=== PATIENT | female | born 1930 | race Caucasian/White ===

== ENCOUNTER 2017-03-04 11:39 | Inpatient (IN) | payer OTHER ==
--- NOTE | 2017-03-04 11:56 | PDOC ---
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 No reported loss of consciousness. A family friend who visits her daily accompanies her to the ER, and states that her mental status is normal. There were has been no change in her alertness or her interactive ability since the fall. However, she complains of a visual impairment, able only to recognize shadows. This is new according to her friend. Review of systems: Patient has dementia but appears to be able to communicate somewhat about her medical condition. She denies headache, neck pain, chest pain , shortness of breath, abdominal pain, nausea, vomiting, diarrhea, or focal neurologic symptoms, unsteadiness of gait. However, she complains of decreased vision but is unable to identify which eye. Remainder systems reviewed and negative Past medical history: Alzheimer's dementia, thyroid disease, rheumatoid arthritis, status post aplastic anemia questionable etiology, GERD, high blood pressure, TIA, sick sinus syndrome with pacemaker. ALLERGIES: Penicillin sulfa Medications: Septra, Seroquel, Celexa, baby aspirin, Pepcid, Norvasc, metoprolol , methimazole, vitamins. Social history: Assisted living, nearest relative is in [place], family friend here visits her frequently. She is ambulatory and partially cares for herself, although dementia is significant Family history: Reviewed from her medical record, noncontributory Physical exam: Patient is confused but responsive, able to communicate adequately, no acute distress, cooperative Afebrile, vital signs normal Head: Small contusion and abrasion mid occiput. No laceration. No hematoma, depression, or crepitus Right pupil is pinpoint. Left pupil is dilated with evidence of prior iridectomy. Fundi are not visualized. ENT clear except for dry mucous membranes Neck without point tenderness or deformity of the vertebral bodies. Adequate range of motion without obvious pain. An enlarged thyroid is present without signs of inflammation. Lungs clear to P&A, no wheezes rales or rhonchi. No chest wall or rib cage tenderness or deformity CV S1 and S2 normal without murmur rub or gallop pulses full and symmetric no JVD or edema Abdomen nondistended, normal bowel sounds. Soft without mass tenderness or organomegaly. No CVAT Pelvis and spine without point tenderness or deformity. Extremities: No visible or palpable signs of trauma. Good range of motion without pain of the shoulders elbows hips knees and ankles. Neurological: C2 to 12 intact except for the pupils as noted above and loss of visual acuity. She claims to be able to see only outlines of shapes. Generalized weakness but no focal sensory or motor deficits are obvious. Babinski's down. DTRs 2+ symmetric Impression: Syncopal episode while in the bathroom at the [facility], probable vasovagal syncope, with subsequent head injury. Head injury appears to be minor, there is no neck pain or tenderness, and no sign of other injuries to the trunk or extremities. 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 In addition, there appears to be a loss of visual acuity, which may have contributed to her fall. This may be a TIA or acute CVA. Plan: CT to rule out occult bleed in the PHOTOGRAPHIC PROCESS SCREEN MAKER. EKG and enzymes to rule out occult coronary event. CBC and chemistries. Observation and further therapy depending on results 03/04/17 13:11 Past History - Past Medical History Allergies/Adverse Reactions: Allergies Allergy/AdvReac Type Severity Reaction Status Date / Time Penicillins Allergy Verified 03/04/17 12:16 Sulfa (Sulfonamide Allergy Verified 03/04/17 12:16 Antibiotics) STRAWBERRIES Allergy Uncoded 03/04/17 12:16 Home Medications: Ambulatory Orders Amlodipine Besylate [Norvasc -] 5 mg PO DAILY 03/04/17 Aspirin [ASA -] 81 mg PO ASDIR 03/04/17 Citalopram Hydrobromide [Citalopram HBr] 20 mg PO DAILY 03/04/17 Donepezil HCl [Aricept] 10 mg PO DAILY 03/04/17 Famotidine [Pepcid] 20 mg PO DAILY 03/04/17 Ferrous Sulfate [Feosol] 325 mg PO DAILY 03/04/17 Memantine HCl [Namenda -] 10 mg PO BID 03/04/17 Methimazole [Tapazole] 5 mg PO DAILY 03/04/17 Metoprolol Succinate [Toprol Xl -] 25 mg PO DAILY 03/04/17 Multivitamins [Tab-A-Vit -] 1 tab PO DAILY 03/04/17 Quetiapine Fumarate [Seroquel -] 50 mg PO BID 03/04/17 Turmeric Root Extract [Turmeric] 500 mg PO BID 03/04/17 Anemia: Yes (APLASTIC) Asthma: No Cancer: Yes (LEFT BREAST CA, SKIN CA) Cardiac Disorders: No CVA: Yes COPD: No CHF: No Dementia: Yes (MILD) Diabetes: No GI Disorders: Yes Disorders: No HTN: Yes Hypercholesterolemia: No Liver Disease: No Seizures: No Thyroid Disease: No - Surgical History Abdominal Surgery: Yes Appendectomy: No Cardiac Surgery: Yes (PACEMAKER) Cholecystectomy: Yes Lung Surgery: No Neurologic Surgery: No Orthopedic Surgery: Yes - Immunization History Td Vaccination: (unknown) - Suicide/Smoking/Psychosocial Hx Smoking Status: No Smoking History: Unknown if ever smoked Have you smoked in the past 12 months: No Number of Cigarettes Smoked Daily: 0 Hx Alcohol Use: No Drug/Substance Use Hx: No Substance Use Type: None Hx Substance Use Treatment: No *Physical Exam - Vital Signs Last Vital Signs Temp Pulse Resp BP Pulse Ox 99.3 F 89 18 140/71 96 03/04/17 11:44 03/04/17 11:44 03/04/17 11:44 03/04/17 11:44 03/04/17 11:44 ED Treatment Course - LABORATORY CBC & Chemistry Diagram: 03/04/17 11:58 03/04/17 11:58 Medical Decision Making - Medical Decision Making 03/04/17 12:55 EKG: Normal sinus rhythm 87/m. No evidence of pacemaker firing. Normal axes and intervals. No ST-T wave changes. Normal EKG Labs evaluated. CBC is normal with no evidence of leukopenia, anemia, or thrombocytopenia. Chemistries mild dehydration. Troponin negative. Head CT: No bleed. No other significant abnormalities. Been responsible for her fall, or may be the result. It is difficult to assess the extent of her vision loss due to her dementia. Her electrifier operator Dr. bueno was contacted by phone. He will see the patient later today. A neurologic consult was placed. The case was discussed with the hospitalist, who will admit the patient and arrange further evaluation and treatment. Patient is stable upon discharge to the [facility] floor for further treatment. 03/04/17 12:57 03/04/17 15:47 *DC/Admit/Observation/Transfer Diagnosis at time of Disposition: Decreased visual acuity Syncope Qualifiers: Syncope type: unspecified Qualified Code(s): R55 - Syncope and collapse - Discharge Dispostion Admit: Yes
[2017-03-04 12:04] LABS: EOSINOPHIL 0.5 % (0-4.5); MCH 31.9 pg (25.7-33.7); MCHC 32.9 g/dl (32.0-36.0); MEAN PLT VOLUME 6.9 fl (7.5-11.1); NEUTROPHILS 71.1 % (42.8-82.8); PLATELET COUNT 305 K/MM3 (134-434); RDW 15.4 % (11.6-15.6); WHITE BLOOD COUNT 5.8 K/mm3 (4.0-10.8)
[2017-03-04 12:21] LABS: INR 1.07 (0.82-1.09)
[2017-03-04 12:22] LABS: ALBUMIN 4.5 g/dl (3.5-5.0); ALK PHOS 108 U/L (32-92); ANION GAP 13 (8-16); BILIRUBIN,TOTAL 0.6 mg/dl (0.2-1.0); CALCIUM 9.4 mg/dl (8.4-10.2); CO2 22 mmol/L (22-28); CPK 71 IU/L (26-192); CREATININE 1.4 mg/dl (0.6-1.3); GLUCOSE,RANDOM 118 mg/dl (74-106); SGOT/AST 23 U/L (10-42); SGPT/ALT 17 U/L (10-40); TOT PROT 7.8 g/dl (6.4-8.3)
[2017-03-04] MEDS ORDERED: SODIUM CHLORIDE 250 ML IV STA (12:41)
[2017-03-04 12:49] LABS: TROPONIN I (DFP) < 0.03 ng/ml (0.03-0.50)
[2017-03-04] MEDS ORDERED: LORazepam 2 MG/ML SDV VIAL ONE ×2 (13:50→20:21)
--- NOTE | 2017-03-04 14:25 | HP ---
CHIEF COMPLAINT: syncope PCP: [facility] HISTORY OF PRESENT ILLNESS: This is an 86 year old female with a significant past medical history of SSS s/ p PPM, TIA, HTN who presented to the ED from her assisted living facility. As per her friend, she was found on the floor in the bathroom after pulling the emergency cord in her bathroom. Pt is unable to provide any history of her fall or past medical history. History obtained for medical record and friend. Pt reported to the ED staff that she was unable to see, that all she was seeing was shadows. Pt sustained a contusion and abrasion to the back of her head but no other obvious injury located and she denies specific complaints. Upon exam pt does not report any visual changes and seems confused when I asked her about her vision. ER course was notable for: (1) Ct head without acute infarction or bleed (2) CT c spine without acute fracture or subluxation Recent Travel: none PAST MEDICAL HISTORY: alzheimer's dementia thyroid disease RA aplastic anemia GERD HTN TIA sick sinus syndrome PAST SURGICAL HISTORY: PPM Right cataract Social History: Smoking: none Alcohol: none Drugs: none Family History: unobtainable Allergies Penicillins Allergy (Verified 03/04/17 12:16) Sulfa (Sulfonamide Antibiotics) Allergy (Verified 03/04/17 12:16) STRAWBERRIES Allergy (Uncoded 03/04/17 12:16) HOME MEDICATIONS: 3 Medication Instructions Recorded Amlodipine Besylate [Norvasc -] 5 mg PO DAILY 03/04/17 Aspirin [ASA -] 81 mg PO ASDIR 03/04/17 Citalopram Hydrobromide 20 mg PO DAILY 03/04/17 [Citalopram HBr] Donepezil HCl [Aricept] 10 mg PO DAILY 03/04/17 Famotidine [Pepcid] 20 mg PO DAILY 03/04/17 Ferrous Sulfate [Feosol] 325 mg PO DAILY 03/04/17 Memantine HCl [Namenda -] 10 mg PO BID 03/04/17 Methimazole [Tapazole] 5 mg PO DAILY 03/04/17 Metoprolol Succinate [Toprol Xl -] 25 mg PO DAILY 03/04/17 Multivitamins [Tab-A-Vit -] 1 tab PO DAILY 03/04/17 Quetiapine Fumarate [Seroquel -] 50 mg PO BID 03/04/17 Turmeric Root Extract [Turmeric] 500 mg PO BID 03/04/17 REVIEW OF SYSTEMS CONSTITUTIONAL: Absent: fever, chills, diaphoresis, generalized weakness, malaise, loss of appetite, weight change HEENT: Present: difficulty seeing Absent: rhinorrhea, nasal congestion, throat pain, throat swelling, difficulty swallowing, mouth swelling, ear pain, eye pain, visual changes CARDIOVASCULAR: Absent: chest pain, syncope, palpitations, irregular heart rate, lightheadedness , peripheral edema RESPIRATORY: Absent: cough, shortness of breath, dyspnea with exertion, orthopnea, wheezing, stridor, hemoptysis GASTROINTESTINAL: Absent: abdominal pain, abdominal distension, nausea, vomiting, diarrhea, constipation, melena, hematochezia GENITOURINARY: Absent: dysuria, frequency, urgency, hesitancy, hematuria, flank pain, genital pain MUSCULOSKELETAL: Absent: myalgia, arthralgia, joint swelling, back pain, neck pain SKIN: Absent: rash, itching, pallor HEMATOLOGIC/IMMUNOLOGIC: Absent: easy bleeding, easy bruising, lymphadenopathy, frequent infections ENDOCRINE: Absent: unexplained weight gain, unexplained weight loss, heat intolerance, cold intolerance NEUROLOGIC: Present: fall with head injury Absent: headache, focal weakness or paresthesias, dizziness, unsteady gait, seizure, mental status changes, bladder or bowel incontinence PSYCHIATRIC: Absent: anxiety, depression, suicidal or homicidal ideation, hallucinations. PHYSICAL EXAMINATION Vital Signs - 24 hr 3 03/04/17 03/04/17 11:44 14:16 Temperature 99.3 F Pulse Rate 89 Pulse Rate [ 88 Apical] Respiratory 18 16 Rate Blood Pressure 140/71 Blood Pressure 122/72 [Right Arm] O2 Sat by Pulse 96 Oximetry (%) GENERAL: Sleeping, arousable, in no acute distress. Pt appears disheveled with unkempt hair HEAD: Normal with no signs of trauma. EYES: Left pupil irreg, post surgical, right pupil 2mm, minimal reaction, extraocular movements intact, sclera anicteric, conjunctiva clear. No lid lag. Able to follow finger and identify how many fingers being held up. EARS, NOSE, THROAT: Ears normal, nares patent, oropharynx clear without exudates. Moist mucous membranes. NECK: Normal range of motion, supple without lymphadenopathy, JVD, or masses. LUNGS: Breath sounds equal, clear to auscultation bilaterally. No wheezes, and no crackles. No accessory muscle use. HEART: Regular rate and rhythm, normal S1 and S2 without murmur, rub or gallop. ABDOMEN: Soft, nontender, not distended, normoactive bowel sounds, no guarding, no rebound, no masses. No hepatomegaly or splenomegaly. MUSCULOSKELETAL: Normal range of motion at all joints. No bony deformities or tenderness. No CVA tenderness. UPPER EXTREMITIES: 2+ pulses, warm, well-perfused. No cyanosis. No clubbing. No peripheral edema. LOWER EXTREMITIES: 2+ pulses, warm, well-perfused. No calf tenderness. No peripheral edema. NEUROLOGICAL: Cranial nerves II-XII intact. Normal speech. Normal gait. PSYCHIATRIC: Cooperative. Good eye contact. Appropriate mood and affect. SKIN: Warm, dry, normal turgor, no rashes or lesions noted, normal capillary refill. Laboratory Results - last 24 hr 3 03/04/17 03/04/17 03/04/17 11:58 11:58 11:58 WBC 5.8 RBC 4.07 Hgb 13.0 D Hct 39.4 D MCV 97.0 H D MCH 31.9 D MCHC 32.9 RDW 15.4 D Plt Count 305 MPV 6.9 L Neutrophils % 71.1 Lymphocytes % 10.4 D Monocytes % 17.0 H Eosinophils % 0.5 Basophils % 1.0 D PT with INR 12.0 INR 1.07 Sodium 137 Potassium 4.1 Chloride 102 Carbon Dioxide 22 D Anion Gap 13 BUN 39 H D Creatinine 1.4 H D Creat Clearance w eGFR 35.65 Random Glucose 118 H Calcium 9.4 Total Bilirubin 0.6 D AST 23 ALT 17 Alkaline Phosphatase 108 H D Creatine Kinase 71 Troponin I < 0.03 L Total Protein 7.8 Albumin 4.5 Radiology Reports ECG NSR QTC 450 ASSESSMENT/PLAN: 86yF with PMH Alzheimer's dementia, RA, aplastic anemia, GERD, HTN, TIA, SSS s/ p PPM presented to the ED s/p found on floor. Fall, ? syncope, ? new visual field changes - CT head with no acute changes - Ophthalmology consult pending - discussed case with neurology, will hold off on MRI at this time. - admit for observation, tele, trend cardiac enzymes to r/o cardiac event causing fall - start ASA ARIANE - likely due to hypovolemia - gentle hydration, NS @ 75cc/hr HTN - cont home toprol and norvasc Thyroid disease, goiter - check TSH - cont tapazole Alzheimer's dementia with behavioral disturbance - cont aricept, namenda and seroquel - pt was extremely agitated in ED, given 1mg ativan with good relief. DVT PPX - defer tx as expected LOS <48h FEN - cont NS 75cc/hr for now, reassess in am - BMP in am - regular diet as tolerated Dispo: Pt currently requires inpatient observation for management of her acute condition. Visit type - Emergency Visit Emergency Visit: Yes ED Registration Date: 03/04/17 Care time: The patient presented to the Emergency Department on the above date and was hospitalized for further evaluation of their emergent condition. - New Patient This patient is new to me today: Yes Date on this admission: 03/04/17 - Critical Care Critical Care patient: No
[2017-03-04] MEDS ORDERED: ASPIRIN 325 MG TABLET PO ONE (14:40)
[2017-03-04] MEDS ORDERED: SODIUM CHLORIDE 1,000 ML IV SCH (14:45)
[2017-03-04] MEDS ORDERED: ASPIRIN 81 MG CHEWABLE TABLETS PO SCH (15:00)
[2017-03-04] MEDS ORDERED: ASPIRIN 325 MG TABLET ONE (15:13)
--- NOTE | 2017-03-04 18:19 | CONSULT ---
Consult Consult Specialty:: Ophthalmology - History of Present Illness Chief Complaint: Sudden change in her vision since she fell this morning. - Past Medical History Cardio/Vascular: Yes: HTN, Other (SSS and syncope) Pulmonary: Yes: Bronchitis Psych: Yes: Anxiety, Depression Musculoskeletal: Yes: Chronic low back pain, Osteoarthritis - Past Surgical History Past Surgical History: Yes: None, Arthrosocopy, Breast Biopsy, Craniotomy, Hysterectomy - Alcohol/Substance Use Hx Alcohol Use: No History of Substance Use: reports: None - Smoking History Smoking history: Unknown if ever smoked Have you smoked in the past 12 months: No Aproximately how many cigarettes per day: 0 - Social History ADL: Support Services History of Recent Travel: No Home Medications - Allergies Allergies/Adverse Reactions: Allergies Allergy/AdvReac Type Severity Reaction Status Date / Time Penicillins Allergy Verified 03/04/17 12:16 Sulfa (Sulfonamide Allergy Verified 03/04/17 12:16 Antibiotics) STRAWBERRIES Allergy Uncoded 03/04/17 12:16 - Home Medications Home Medications: Ambulatory Orders Amlodipine Besylate [Norvasc -] 5 mg PO DAILY 03/04/17 Aspirin [ASA -] 81 mg PO ASDIR 03/04/17 Citalopram Hydrobromide [Citalopram HBr] 20 mg PO DAILY 03/04/17 Donepezil HCl [Aricept] 10 mg PO DAILY 03/04/17 Famotidine [Pepcid] 20 mg PO DAILY 03/04/17 Ferrous Sulfate [Feosol] 325 mg PO DAILY 03/04/17 Memantine HCl [Namenda -] 10 mg PO BID 03/04/17 Methimazole [Tapazole] 5 mg PO DAILY 03/04/17 Metoprolol Succinate [Toprol Xl -] 25 mg PO DAILY 03/04/17 Multivitamins [Tab-A-Vit -] 1 tab PO DAILY 03/04/17 Quetiapine Fumarate [Seroquel -] 50 mg PO BID 03/04/17 Turmeric Root Extract [Turmeric] 500 mg PO BID 03/04/17 Physical Exam Vital Signs: Vital Signs Temperature 98.4 F 03/04/17 17:28 Pulse Rate 86 03/04/17 17:28 Respiratory Rate 20 03/04/17 17:28 Blood Pressure 130/66 03/04/17 17:28 O2 Sat by Pulse Oximetry (%) 93 L 03/04/17 17:28 Eyes: Yes: Other (Va CF OD and Hand Motion OS. Pupils 2mm with little reaction OD and surgical OS - minimally reactive. Full EOM Anterior exam significant for mild injection and mucous discharge OD. Pseudophakic oD and aphakic OS. Intraocular pressure 14mmHg OU. The patient was dilated with 1% Tropicamide OU. Posterior exam was without acute pathology. No papilledema.) Assessment/Plan A/p: Acute decrease in vision OU without ocular changes. R/o Occipital lobe infarct (cortical blindness).
--- NOTE | 2017-03-04 18:25 | CON.NEURO ---
Consult - Past Medical History Cardio/Vascular: Yes: HTN, Other (SSS and syncope) Pulmonary: Yes: Bronchitis ...: No Psych: Yes: Anxiety, Depression Musculoskeletal: Yes: Chronic low back pain, Osteoarthritis - Past Surgical History Past Surgical History: Yes: None, Arthrosocopy, Breast Biopsy, Craniotomy, Hysterectomy - Alcohol/Substance Use Hx Alcohol Use: No History of Substance Use: reports: None - Smoking History Smoking history: Unknown if ever smoked Have you smoked in the past 12 months: No Aproximately how many cigarettes per day: 0 - Social History ADL: Support Services History of Recent Travel: No Home Medications - Allergies Allergies/Adverse Reactions: Allergies Allergy/AdvReac Type Severity Reaction Status Date / Time Penicillins Allergy Verified 03/04/17 12:16 Sulfa (Sulfonamide Allergy Verified 03/04/17 12:16 Antibiotics) STRAWBERRIES Allergy Uncoded 03/04/17 12:16 - Home Medications Home Medications: Ambulatory Orders Amlodipine Besylate [Norvasc -] 5 mg PO DAILY 03/04/17 Aspirin [ASA -] 81 mg PO ASDIR 03/04/17 Citalopram Hydrobromide [Citalopram HBr] 20 mg PO DAILY 03/04/17 Donepezil HCl [Aricept] 10 mg PO DAILY 03/04/17 Famotidine [Pepcid] 20 mg PO DAILY 03/04/17 Ferrous Sulfate [Feosol] 325 mg PO DAILY 03/04/17 Memantine HCl [Namenda -] 10 mg PO BID 03/04/17 Methimazole [Tapazole] 5 mg PO DAILY 03/04/17 Metoprolol Succinate [Toprol Xl -] 25 mg PO DAILY 03/04/17 Multivitamins [Tab-A-Vit -] 1 tab PO DAILY 03/04/17 Quetiapine Fumarate [Seroquel -] 50 mg PO BID 03/04/17 Turmeric Root Extract [Turmeric] 500 mg PO BID 03/04/17 Physical Exam-Neuro Vital Signs: Vital Signs Temperature 98.4 F 03/04/17 17:28 Pulse Rate 86 03/04/17 17:28 Respiratory Rate 20 03/04/17 17:28 Blood Pressure 130/66 03/04/17 17:28 O2 Sat by Pulse Oximetry (%) 93 L 03/04/17 17:28 Labs: INR, PTT INR 1.07 (0.82-1.09) 03/04/17 11:58 Assessment/Plan cc found on floor and difficulty seeing HPI 86 year oldf emale hsitory of sick sinus syndrome, tia, hypertension. She lives in assisted living facislity and had ct scan done and it was normal. Patient have difficulty seeing and she had ct scan done it was normal pAST Medical History of dementia, thyroid disease, aplstic anemia, rheumatoid arthritis, hypertension, gerd, tia , had cataract surgery done before Social History: Smoking: none Alcohol: none Drugs: none Allergies Penicillins Allergy (Verified 03/04/17 12:16) Sulfa (Sulfonamide Antibiotics) Allergy (Verified 03/04/17 12:16) STRAWBERRIES Allergy (Uncoded 03/04/17 12:16) HOME MEDICATIONS: 3 Medication Instructions Recorded Amlodipine Besylate [Norvasc -] 5 mg PO DAILY 03/04/17 Aspirin [ASA -] 81 mg PO ASDIR 03/04/17 Citalopram Hydrobromide 20 mg PO DAILY 03/04/17 [Citalopram HBr] Donepezil HCl [Aricept] 10 mg PO DAILY 03/04/17 Famotidine [Pepcid] 20 mg PO DAILY 03/04/17 Ferrous Sulfate [Feosol] 325 mg PO DAILY 03/04/17 Memantine HCl [Namenda -] 10 mg PO BID 03/04/17 Methimazole [Tapazole] 5 mg PO DAILY 03/04/17 Metoprolol Succinate [Toprol Xl -] 25 mg PO DAILY 03/04/17 Multivitamins [Tab-A-Vit -] 1 tab PO DAILY 03/04/17 Quetiapine Fumarate [Seroquel -] 50 mg PO BID 03/04/17 Turmeric Root Extract [Turmeric] 500 mg PO BID 03/04/17 REVIEW OF SYSTEMS reviewed in chart Neurological Examination Alert Oriented x 0 speech is normal and able to follow command no face asymmetry, there is mild conjugate [id number] to left side left eye visual acuity is only for hand movement right eye visual acuity, there is conjugate deviation to left side difficult to move both eye to right moving all extremity sensation is normal ct head unremarkable Assessment-- most likely she have occiptal stroke Plan-- suggest to go mri of brain and carotid ultrasound - would add aspirin and statin - dvt prophylaxis, speech and pt -woudl follow up with primary Thanks for consult Fabian Leigh MD
[2017-03-04 18:49] LABS: CPK 129 IU/L (26-192)
[2017-03-04 19:15] LABS: TROPONIN I (DFP) < 0.03 ng/ml (0.03-0.50)
[2017-03-04] MEDS ORDERED: QUEtiapine FUMARATE 25 MG TABLET (FP) ONE (21:28)
[2017-03-04] MEDS: MEMANTINE HCL 10 MG TABLET (FP) PO SCH (21:43)
[2017-03-04] MEDS ORDERED: ATORVASTATIN CA 20 MG TABLET (FP) PO SCH (22:00)
[2017-03-04] MEDS ORDERED: QUEtiapine FUMARATE 50 MG TABLET PO SCH (22:00)
[2017-03-05 02:34] LABS: TROPONIN I 0.04 ng/ml (0.00-0.05)
[2017-03-05 08:12] LABS: BASOPHIL 0.1 % (0-2.0); EOSINOPHIL 0.9 % (0-4.5); MCH 32.3 pg (25.7-33.7); MCHC 33.3 g/dl (32.0-36.0); MEAN CELL VOLUME 96.8 fl (80-96); MEAN PLT VOLUME 7.3 fl (7.5-11.1); NEUTROPHILS 75.3 % (42.8-82.8); PLATELET COUNT 210 K/MM3 (134-434); RDW 14.7 % (11.6-15.6); WHITE BLOOD COUNT 6.2 K/mm3 (4.0-10.8)
[2017-03-05 08:43] LABS: ALBUMIN 3.8 g/dl (3.5-5.0); ALK PHOS 87 U/L (32-92); ANION GAP 11 (8-16); BILIRUBIN,TOTAL 1.2 mg/dl (0.2-1.0); CALCIUM 8.8 mg/dl (8.4-10.2); CO2 20 mmol/L (22-28); CREATININE 0.9 mg/dl (0.6-1.3); GLUCOSE,RANDOM 114 mg/dl (74-106); MAGNESIUM 1.6 mg/dL (1.8-2.4); SGOT/AST 36 U/L (10-42); SGPT/ALT 18 U/L (10-40); TOT PROT 6.2 g/dl (6.4-8.3)
--- NOTE | 2017-03-05 09:24 | PN ---
Physical Exam: SUBJECTIVE: Patient seen and examined at bedside. Student nurses bathing patient , report she is crusted with dirt. OBJECTIVE: Vital Signs Period Temp Pulse Resp BP Sys/Fowler Pulse Ox Last 24 Hr 98.4 F-98.9 F 83-95 16-20 119-146/61-89 93-95 GENERAL: The patient is awake, A&O x 0. Follows commands after several attempts (squeeze hands), repeats I want to go home. Speech is clear. Moving extremites. HEAD: Normal with no signs of trauma. EYES: left pupil irregular; right pupil 1mm and deviated to left; left eye infected, lids inflamed, clear discharge LUNGS: CTA,no wheezes, no crackles, no accessory muscle use. HEART: Regular rate and rhythm, S1, S2 without murmur, rub or gallop. ABDOMEN: Soft, nontender, nondistended, normoactive bowel sounds, no guarding, no rebound EXTREMITIES: 2+ pulses, warm, well-perfused, no edema. Laboratory Results - last 24 hr 03/04/17 03/04/17 03/05/17 15:00 18:10 01:20 WBC RBC Hgb Hct MCV MCH MCHC RDW Plt Count MPV Neutrophils % Lymphocytes % Monocytes % Eosinophils % Basophils % Sodium Potassium Chloride Carbon Dioxide Anion Gap BUN Creatinine Creat Clearance w eGFR Random Glucose Calcium Magnesium Total Bilirubin AST ALT Alkaline Phosphatase Creatine Kinase 129 389 H Creatine Kinase Index 1.7 CK-MB (CK-2) 6.643 H Troponin I < 0.03 L 0.04 Total Protein Albumin TSH < 0.01 L 03/05/17 03/05/17 07:15 07:15 WBC 6.2 RBC 3.50 L Hgb 11.3 D Hct 33.9 MCV 96.8 H MCH 32.3 MCHC 33.3 RDW 14.7 Plt Count 210 D MPV 7.3 L Neutrophils % 75.3 Lymphocytes % 10.5 Monocytes % 13.2 H Eosinophils % 0.9 Basophils % 0.1 Sodium 141 Potassium 3.4 L Chloride 110 H Carbon Dioxide 20 L Anion Gap 11 BUN 24 H D Creatinine 0.9 D Creat Clearance w eGFR 59.37 Random Glucose 114 H Calcium 8.8 Magnesium 1.6 L D Total Bilirubin 1.2 H D AST 36 D ALT 18 Alkaline Phosphatase 87 Creatine Kinase Creatine Kinase Index CK-MB (CK-2) Troponin I Total Protein 6.2 L D Albumin 3.8 TSH Active Medications Generic Name Dose Route Start Last Admin Trade Name Maynor PRN Reason Stop Dose Admin Amlodipine Besylate 5 mg 03/05/17 10:00 Norvasc - PO DAILY [facility] Aspirin 81 mg 03/05/17 10:00 Asa - PO DAILY DIANNE Atorvastatin Calcium 20 mg 03/04/17 22:00 03/04/17 21:43 Lipitor - PO 20 mg HS DIANNE Administration Citalopram Hydrobromide 20 mg 03/05/17 10:00 Celexa - PO DAILY DIANNE Donepezil HCl 10 mg 03/05/17 10:00 Aricept - PO DAILY DIANNE Famotidine 20 mg 03/05/17 10:00 Pepcid - PO DAILY [facility] Ferrous Sulfate 325 mg 03/05/17 10:00 Feosol - PO DAILY [facility] Sodium Chloride 1,000 mls @ 75 mls/hr 03/04/17 14:45 03/04/17 15:20 Normal Saline - IV 75 mls/hr ASDIR DIANNE Administration Magnesium Oxide 800 mg 03/05/17 09:19 Mag-Ox - PO 03/05/17 09:20 ONCE ONE Memantine 10 mg 03/04/17 22:00 03/04/17 21:43 Namenda - PO 10 mg BID DIANNE Administration Methimazole 5 mg 03/05/17 10:00 Tapazole - PO DAILY [facility] Metoprolol Succinate 25 mg 03/05/17 10:00 Toprol Xl - PO DAILY [facility] Multivitamins/Minerals/Vitamin C 1 tab 03/05/17 10:00 Tab-A-Vit - PO DAILY [facility] Potassium Chloride 40 meq 03/05/17 09:30 K-Dur - PO 03/05/17 15:31 Q6H DIANNE Quetiapine Fumarate 50 mg 03/05/17 10:00 Seroquel - PO BID [facility] ASSESSMENT/PLAN: 86 year-old female with a PMH significant for HTN, dementia, h/o TIA, sick sinus syndrome s/p PPM, and thyroid disease. Found on floor. Possible syncope r/o CVA --seen and evaluated by personal opthalmologist, found to have acute decrease in OU vision without ocular changes (irregular left pupil, and miotic, deviated right pupil are baseline) --possible occipital lobe infarct --CT head unremarkable; MRI brain pending, reaching out to nephew to answer MRI questionnaire --continue ASA, high dose statin r/o ACS SVT --troponins negative x 3 --episode of tachyarrthymia overnight to 140s --QTc 450 on ECG, on seroquel is concerning; repeat ECG --continue Toprol XL --cardiology consult requested ARIANE, resolved --Cr 1.4 on admission, today 0.9 --stop IV fluids HTN --BP well-controlled --continue Toprol XL, amlodipine Thyroid disease, goiter - TSH wnl - continue methimazole Alzheimer's dementia with behavioral disturbance --cont aricept, namenda --hold seroquel for now due to concern for prolonged QTc, tachyarrythmia --swallowing is impaired Hypokalemia --repleted --keep K>4.0 Hypomagnesemia --repleted --keep Mg>2.0 Physical therapy eval FEN Fluids: PO intake adequate Electrolytes: replete as indicated Nutrition: dysphagia puree, nectar thick DVT prophylaxis: subq heparin, oob, ambulation Dispo: conversation with Reji Mosquera, brother and HCP (cell [phone]); he is aware of sister's decline, of her being unkempt and refusing to bathe, of her progressive dementia with episodes of agitation; discussed possible need for higher level of care than [facility]; brother confirmed patient is FULL CODE. Visit type - Emergency Visit Emergency Visit: Yes ED Registration Date: 03/04/17 Care time: The patient presented to the Emergency Department on the above date and was hospitalized for further evaluation of their emergent condition. - New Patient This patient is new to me today: Yes Date on this admission: 03/05/17 - Critical Care Critical Care patient: No
[2017-03-05] MEDS ORDERED: QUEtiapine FUMARATE 25 MG TABLET (FP) PO SCH (10:00)
[2017-03-05] MEDS ORDERED: MULTIVITAMINS (DAILY MVI) TABLET (FP) PO SCH (10:00)
[2017-03-05] MEDS ORDERED: FERROUS SO4 325 MG TABLET (FP) PO SCH (10:00)
[2017-03-05] MEDS ORDERED: MAGNESIUM OXIDE 400 MG TABLET (FP) PO ONE (10:20)
[2017-03-05] MEDS: POTASSIUM CHLORIDE TABS 20 MEQ TABLET.ER (FP) PO SCH ×2 (10:57→15:39)
[2017-03-05] MEDS: ASPIRIN 81 MG CHEWABLE TABLETS PO SCH (10:57)
[2017-03-05] MEDS: amLODIPine BESYLATE 5 MG TABLET (FP) PO SCH (10:57)
[2017-03-05] MEDS: METOPROLOL SUCCINATE 25 MG TAB.SR.24H (FP) PO SCH (10:57)
[2017-03-05] MEDS: CITALOPRAM HYDROBROMIDE 20 MG TABLET (FP) PO SCH (10:57)
[2017-03-05] MEDS: DONEPEZIL HCL 10 MG TABLET (FP) PO SCH (10:57)
[2017-03-05] MEDS: FAMOTIDINE 20 MG TABLET PO SCH (10:57)
[2017-03-05] MEDS: METHIMAZOLE 5 MG TABLET (FP) PO SCH (10:57)
[2017-03-05] MEDS: MEMANTINE HCL 10 MG TABLET (FP) PO SCH ×3 (10:57→23:52)
[2017-03-05] MEDS: TOBRA 0.3%/DEXAMETH 0.1% OPHTHALMIC SUSP 2.5 ML BTL OD SCH ×3 (11:02→21:19)
--- NOTE | 2017-03-05 11:13 | CONSULT ---
Admitting History and Physical - Primary Care Physician PCP: Anita Gomez - Admission History of Present Illness: Per EMR: HISTORY OF PRESENT ILLNESS: This is an 86 year old female with a significant past medical history of SSS s/ p PPM, TIA, HTN who presented to the ED from her assisted living facility. As per her friend, she was found on the floor in the bathroom after pulling the emergency cord in her bathroom. Pt is unable to provide any history of her fall or past medical history. History obtained for medical record and friend. Pt reported to the ED staff that she was unable to see, that all she was seeing was shadows. Pt sustained a contusion and abrasion to the back of her head but no other obvious injury located and she denies specific complaints. Upon exam pt does not report any visual changes and seems confused when I asked her about her vision. ER course was notable for: (1) Ct head without acute infarction or bleed (2) CT c spine without acute fracture or subluxation Per Opthamology "Acute decrease in vision OU without ocular changes. R/o Occipital lobe infarct (cortical blindness)." Pt given Ativan last night for acute agitation. Pt arousal and responsive for me this am. She is able to count no. of finger I hold up today 90% of the time but could not see/name a fork. History Source: Medical Record Limitations to Obtaining History: Clinical Condition, Dementia, Poor Historian - Past Medical History Cardiovascular: Yes: HTN, Other (SSS and syncope) Pulmonary: Yes: Bronchitis ...: No Heme/Onc: Yes: Other (Aplastic Anemia) Psych: Yes: Anxiety, Depression Musculoskeletal: Yes: Chronic low back pain, Osteoarthritis - Past Surgical History Past Surgical History: Yes: None, Arthrosocopy, Breast Biopsy, Craniotomy, Hysterectomy - Smoking History Smoking history: Unknown if ever smoked Have you smoked in the past 12 months: No Aproximately how many cigarettes per day: 0 - Alcohol/Substance Use Hx Alcohol Use: No History of Substance Use: reports: None - Social History ADL: Support Services History of Recent Travel: No History - Admission Reason For Visit: DECREASED VISUAL ACUITY/SYNCOPE - Diagnostics CT Scan: Report Reviewed MRI: Pending - General Mental Status: Awake and Alert (not oriented x 3), Able to Follow Commands, Forgetful, Confused Attention: Distractible, Mild Impairment Ability to Follow Directions: Fair Head/Neck Control: Fair - Hearing Hearing: Impaired Speech Evaluation - Communication Primary Language: ARMENIAN Communication: Yes: Simple Responses (mild articulatory imprecision likely sec to Ativan.) Oral Expression Ability: Yes: Mild Impairment, Moderate Impairment - Speech Production Able to Make Needs Known: Yes: Mildly Impaired Intelligibility: Yes: Mildly Impaired - Speech Characteristics Voice Loudness: Normal Voice Pitch: Yes: Normal Voice Phonatory-based Quality: Yes: Normal Speech Pattern: Impaired Speech Clarity: < 75% Nasal Resonance: Normal Articulation: Yes: Imprecise - Language/Auditory Comprehension Follows: Yes: 1 Stage Simple Commands - Language/Verbal Expression Aphasia: Yes: Anomia, Paraphrasic Errors (baseline vs acute) Able to Respond to Simple Queries: Yes: Moderately Impaired Able to Communicate Wants and Needs: Yes: Mildly Impaired Aware of Errors: No Attempts to Correct Errors: No - Swallow Evaluation/Bedside Assessment Current Nutritional Intake: Regular, Thin Liquids Oral Secretions: Yes: WFL (secretions on velum) Dentition: Yes: Adequate Facial Symmetry at Rest: Symmetrical Facial Symmetry on Retraction: Symmetrical Laryngeal Elevation: Impaired Laryngeal Movement: Reduced Excursion (quite restricted and labored laryngeal elevation), Labored,delay initiation, Reduced Velocity Rate of Intake: Slow/Holding Bolus Size: Small (accepts tip of spoon) Labial Seal: WFL Oral Prep Time: Increased A-P Transit: Impaired Timing of Swallow: Delayed (needs reminders to swallow.) Coughing/Throat Clear: Yes (thin water trial) Recommendations - Speech Evaluation, Impression/Plan Impression: Quite restricted and labored laryngeal elevation. Doubt this is acute. Aspiration suspected on thin liquid and stasis with puree/solids. Verbal , confused,disoriented x 3,anomia and word errors. Able to see my fingers and count them. - Disposition Discharge to: [facility] Facility - Dysphagia Impressions/Plan Swallowing Skills: Impaired Dysphagia Impressions: Moderate Impairment, Ongoing Evaluation, Suspect Aspiration *Silent aspiration: cannot be R/O at bedside Dysphagia Treatment Plan: Small Bites, Chin Tuck/Down, Clear Pocket Food, Trial Feedings, Facilitative Feeding, Safe Rate, 1/2 tsp. at a time, Elevate HOB during feed Recommendations: Modified Barium Swallow (if signs of aspiration), Other ( Monitor neurologic, pulmonary and nutritional status. NPO if cough,congestion, throat clearing, elevating WBC, fevers.) - Recommendations Diet Consistency: Dysphagia Pureed Medication Administration: Crushed with applesauce Liquids: [place] Thick Supplement: Other (Ensure compact)
[2017-03-05] MEDS ORDERED: LORazepam 2 MG/ML SDV VIAL IVPUSH ONE (12:00)
[2017-03-05] MEDS ORDERED: LORazepam 0.5 MG TABLET PO ONE (13:00)
[2017-03-05 14:10] LABS: PH,URINE 5.5 (4.5-8); URINE APPEARANCE Clear; URINE BILIRUBIN Negative (NEGATIVE); URINE GLUCOSE (UA) Negative (NEGATIVE); URINE KETONE 1+ (NEGATIVE); URINE LEUK ESTERASE Negative (NEGATIVE); URINE NITRITE Negative (NEGATIVE); URINE UROBILINOGEN 0.2 (0.2-1.0)
[2017-03-05 14:11] LABS: URINE BLOOD 2+ (NEGATIVE); URINE COLOR YELLOW; URINE PROTEIN 1+ (NEGATIVE)
[2017-03-05] MEDS: HEPARIN NA (PORCINE) 5,000 UNITS/ML 1ML VIAL SQ SCH ×2 (14:14→21:16)
[2017-03-05] MEDS ORDERED: PT OWN MED DRAWER 7, Y5N ONE ×2 (14:14→21:14)
[2017-03-05 14:20] LABS: URINE BACTERIA MODERATE /hpf (NEGATIVE); URINE RBC 15-20 /hpf (0-3); URINE WBC 0-3 /hpf (3-5)
--- NOTE | 2017-03-05 16:55 | CON.CARD ---
Cardiology Consult (text) - Consultation Consultation Note: CC: possible [facility]va 86 yo [facility] resident with h/o SSS s/p PPM, TIA, HTN, dementia, aplastic anemia, ra, gerd who presents s/p fall with new vision changes and concern for occiptal stroke . As per her friend, she was found on the floor in the bathroom after pulling the emergency cord in her bathroom. + trauma to head with small amount of bleeding from the occipital area.. Pt reported to the ED staff that all she was seeing was shadows (new). Per neuro, plan for mri and carotid u/s. Hospital course notable for new onset diarrhea and possible tachyarrhythmia to 140's overnight. Per speech and swallow, suspected aspiration --> plan for barium swallow eval. Per usp, ambulates with cane or walker. According to nursing here, patient to agitated/confused to stand. Seroquel stopped due to concern for qt prolongation History limited due to confusion and difficulty hearing. Accuracy of ROS is unclear. She denies cp, sob, orthopnea, pnd, le edema, palps, dizziness. She denies headache, neck pain, abdominal pain, nausea, vomiting, f/c/s. Past medical history/pshx: Alzheimer's dementia, thyroid disease, rheumatoid arthritis, status post aplastic anemia questionable etiology, GERD, high blood pressure, TIA, sick sinus syndrome with pacemaker. Right cataract surgery. Arthrosocopy, Breast Biopsy, Craniotomy, Hysterectomy Social history: Per report, Assisted living, nearest relative is in [place], family friend here visits her frequently. She is ambulatory and partially cares for herself, although dementia is significant. never smoker Family history: denies cardiac history but patient has poor memory ros: per hpi Ambulatory Orders Amlodipine Besylate [Norvasc -] 5 mg PO DAILY 03/04/17 Aspirin [ASA -] 81 mg PO ASDIR 03/04/17 Citalopram Hydrobromide [Citalopram HBr] 20 mg PO DAILY 03/04/17 Donepezil HCl [Aricept] 10 mg PO DAILY 03/04/17 Famotidine [Pepcid] 20 mg PO DAILY 03/04/17 Ferrous Sulfate [Feosol] 325 mg PO DAILY 03/04/17 Memantine HCl [Namenda -] 10 mg PO BID 03/04/17 Methimazole [Tapazole] 5 mg PO DAILY 03/04/17 Metoprolol Succinate [Toprol Xl -] 25 mg PO DAILY 03/04/17 Multivitamins [Tab-A-Vit -] 1 tab PO DAILY 03/04/17 Quetiapine Fumarate [Seroquel -] 50 mg PO BID 03/04/17 Turmeric Root Extract [Turmeric] 500 mg PO BID 03/04/17 Current Medications Amlodipine Besylate (Norvasc -) 5 mg PO DAILY [facility] Last Admin: 03/05/17 10:57 Dose: 5 mg Aspirin (Asa -) 81 mg PO DAILY [facility] Last Admin: 03/05/17 10:57 Dose: 81 mg Atorvastatin Calcium (Lipitor -) 80 mg PO [facility] Citalopram Hydrobromide (Celexa -) 20 mg PO DAILY [facility] Last Admin: 03/05/17 10:57 Dose: 20 mg Donepezil HCl (Aricept -) 10 mg PO DAILY [facility] Last Admin: 03/05/17 10:57 Dose: 10 mg Famotidine (Pepcid -) 20 mg PO DAILY [facility] Last Admin: 03/05/17 10:57 Dose: 20 mg Heparin Sodium (Porcine) (Heparin -) 5,000 unit SQ TID [facility] Last Admin: 03/05/17 14:14 Dose: 5,000 unit Memantine (Namenda -) 10 mg PO BID [facility] Last Admin: 03/05/17 10:57 Dose: 10 mg Methimazole (Tapazole -) 5 mg PO DAILY [facility] Last Admin: 03/05/17 10:57 Dose: 5 mg Metoprolol Succinate (Toprol Xl -) 25 mg PO DAILY [facility] Last Admin: 03/05/17 10:57 Dose: 25 mg Tobramycin/Dexamethasone (Tobradex Ophthalmic Suspension -) 1 drop OD TID [facility] Last Admin: 03/05/17 14:14 Dose: 1 drop Vital Signs - 24 hr 03/04/17 03/04/17 03/05/17 17:28 21:00 05:00 Temperature 98.4 F 98.9 F 98.9 F Pulse Rate 86 94 H 95 H Respiratory 20 20 20 Rate Blood Pressure 130/66 146/61 125/69 O2 Sat by Pulse 93 L 94 L Oximetry (%) 03/05/17 03/05/1717 06:20 09:00 14:05 Temperature 99.9 F H 98.1 F Pulse Rate 78 92 H Respiratory 16 18 Rate Blood Pressure 138/68 140/69 O2 Sat by Pulse 95 Oximetry (%) Intake & Output 03/03/17 03/04/17 03/05/17 03/06/17 07:59 07:59 07:59 07:59 Intake Total 920 Output Total 300 Balance 920 -300 Weight 120 lb cachectic, agitated, diaphoretic. jvd flat, neck supple bibasilar rales, poor effort rrr nl s1, s2 2/6 murmur at sternal border + bs soft nt nd ext without e/c/c + dp/pt alert not oriented no jaundice, no carotid bruits CBC, BMP 03/05/17 07:15 03/05/17 07:15 Laboratory Tests 03/04/17 03/04/17 03/04/17 11:58 15:00 18:10 BUN 39 H D Creatinine 1.4 H D Magnesium Total Bilirubin 0.6 D AST 23 ALT 17 Alkaline Phosphatase 108 H D Creatine Kinase 71 129 Creatine Kinase Index CK-MB (CK-2) Troponin I < 0.03 L < 0.03 L Albumin TSH < 0.01 L Urine Ketones 03/05/17 03/05/17 03/05/17 01:20 07:15 13:45 BUN Creatinine Magnesium 1.6 L D Total Bilirubin 1.2 H D AST 36 D ALT Alkaline Phosphatase 87 Creatine Kinase 389 H Creatine Kinase Index 1.7 CK-MB (CK-2) 6.643 H Troponin I 0.04 Albumin 3.8 TSH Urine Ketones 1+ H EKG: nsr, early r wave progression. non-specific t wave ab. tele: sr/sinus tachycardia, brief episode of svt < 20 beats. cxr: hiatal hernia. no infiltrates/congestion. 86 yo [facility] resident with h/o SSS s/p PPM, TIA, HTN, dementia, aplastic anemia, ra, gerd who presents s/p fall with new vision changes and concern for occiptal stroke . Fall/possible CVA - CVA work up per neuro. anti-platelets per neuro. Would recommend reducing dose of statin to 40 mg if neuro amenable. - would get echo - orthostatic vitals when patient able. - ? brand of ppm and last interrogation. does not appear to be ppm dependent. - CE's neg x 3. EKG as above. - telemetry monitoring, no significant arrhythmias thus far. possible arrhythmia - tachycardia on telemetry sinus tachycardia. Very brief episode of < 20 beat svt x 1. Con't outpatient metoprolol. management of underlying condition ( agitation, volume status, infection/diarrhea, thyroid, etc..) per pmd in order to improve sinus tachycardia. - echo as above - qt not significantly prolonged on presenting ekg can resume seroquel (on multiple qt prolonging medications) with intermittent monitoring of qt on ekg. - mgm't of thyroid abnormalities per pmd. - ongoing lyte repletion prn. HTN - controlled on current regimen con't s/p PPM - will need information regarding brand and last interrogation.
[2017-03-05 17:19] LABS: BASOPHIL 1.6 % (0-2.0); EOSINOPHIL 0.7 % (0-4.5); MCH 32.7 pg (25.7-33.7); MEAN CELL VOLUME 96.2 fl (80-96); MEAN PLT VOLUME 7.1 fl (7.5-11.1); NEUTROPHILS 65.6 % (42.8-82.8); PLATELET COUNT 250 K/MM3 (134-434); RDW 14.9 % (11.6-15.6); WHITE BLOOD COUNT 8.2 K/mm3 (4.0-10.8)
--- NOTE | 2017-03-05 17:28 | EKG ---
Test Reason : Blood Pressure : / mmHG Vent. Rate : 087 BPM Atrial Rate : 087 BPM P-R Int : 172 ms QRS Dur : 088 ms QT Int : 374 ms P-R-T Axes : 057 050 075 degrees QTc Int : 450 ms NORMAL SINUS RHYTHM NO PREVIOUS ECGS AVAILABLE Confirmed by MD DOCKERY MARJORY ([id number]) on 03/05/2017 5:27:51 PM Referred By: DANIEL HUSSEIN Confirmed By:LATONIA DOCKERY MD
[2017-03-05 17:30] LABS: ANION GAP 13 (8-16); CALCIUM 9.1 mg/dl (8.4-10.2); CO2 19 mmol/L (22-28); CREATININE 1.1 mg/dl (0.6-1.3); GLUCOSE,RANDOM 140 mg/dl (74-106); MAGNESIUM 1.9 mg/dL (1.8-2.4)
[2017-03-05] MEDS: ATORVASTATIN CA 40 MG TABLET (FP) PO SCH (21:25)
[2017-03-06] MEDS ORDERED: PT OWN MED DRAWER 7, Y5N ONE ×5 (06:30→21:14)
[2017-03-06] MEDS: TOBRA 0.3%/DEXAMETH 0.1% OPHTHALMIC SUSP 2.5 ML BTL OD SCH ×3 (06:33→21:18)
[2017-03-06] MEDS: HEPARIN NA (PORCINE) 5,000 UNITS/ML 1ML VIAL SQ SCH ×3 (06:34→21:18)
--- NOTE | 2017-03-06 07:41 | PN ---
Progress Note, Physician Chief Complaint: Syncope with visual changes. - Current Medication List Current Medications: Active Medications Amlodipine Besylate (Norvasc -) 5 mg PO DAILY [facility] Last Admin: 03/05/17 10:57 Dose: 5 mg Aspirin (Asa -) 81 mg PO DAILY [facility] Last Admin: 03/05/17 10:57 Dose: 81 mg Atorvastatin Calcium (Lipitor -) 80 mg PO HS [facility] Last Admin: 03/05/17 21:25 Dose: Not Given Citalopram Hydrobromide (Celexa -) 20 mg PO DAILY [facility] Last Admin: 03/05/17 10:57 Dose: 20 mg Donepezil HCl (Aricept -) 10 mg PO DAILY [facility] Last Admin: 03/05/17 10:57 Dose: 10 mg Famotidine (Pepcid -) 20 mg PO DAILY [facility] Last Admin: 03/05/17 10:57 Dose: 20 mg Heparin Sodium (Porcine) (Heparin -) 5,000 unit SQ TID [facility] Last Admin: 03/06/17 06:34 Dose: 5,000 unit Memantine (Namenda -) 10 mg PO BID [facility] Last Admin: 03/05/17 23:52 Dose: Not Given Methimazole (Tapazole -) 5 mg PO DAILY [facility] Last Admin: 03/05/17 10:57 Dose: 5 mg Metoprolol Succinate (Toprol Xl -) 25 mg PO DAILY [facility] Last Admin: 03/05/17 10:57 Dose: 25 mg Tobramycin/Dexamethasone (Tobradex Ophthalmic Suspension -) 1 drop OD TID [facility] Last Admin: 03/06/17 06:33 Dose: 1 drop - Objective Vital Signs: Vital Signs Temperature 98.1 F 03/05/17 14:05 Pulse Rate 92 H 03/05/17 14:05 Respiratory Rate 18 03/05/17 14:05 Blood Pressure 140/69 03/05/17 14:05 O2 Sat by Pulse Oximetry (%) 95 03/05/17 06:20 Constitutional: Yes: Calm, Anxious Eyes: Yes: Conjunctiva Clear, PERRL ( left pupil irregular, rt eye with slight redness, no discharge.) HENT: Yes: WNL Neck: Yes: WNL, Thyromegaly, Other ( ?) Cardiovascular: Yes: Regular Rate and Rhythm Respiratory: Yes: Regular Gastrointestinal: Yes: Normal Bowel Sounds, Soft Genitourinary: Yes: Other (Doe) Musculoskeletal: Yes: Muscle Weakness Extremities: Yes: WNL Edema: No Peripheral Pulses WNL: Yes Peripheral Pulses: Left Radial: 2+, Right Radial: 2+, Left Doralis Pedis: 2+, Right Dorsalis Pedis: 2+, Left Femoral: 2+, Right Femoral: 2+ Integumentary: Yes: Other (dry) Neurological: Yes: Alert, Confusion Psychiatric: Yes: Alert ( but remains confused.) Labs: CBC, BMP 03/05/17 17:05 INR, PTT INR 1.07 (0.82-1.09) 03/04/17 11:58 - ....Imaging Chest X-ray: Report Reviewed (- No acute pathology) Cat Scan: Report Reviewed ( No acute infarct.) Impression/Plan Impression/Plan: A/P This is an 86 year-old female with a PMH significant for HTN,Alzheimer's dementia, h/o TIA, sick sinus syndrome s/p PPM,GED, aplastic anemia, GERD,RA and thyroid disease,who was sent from the [facility] after being found on the floor. * Unwitnessed fall, ? syncope, with visual changes,r/o CVA - neuro consult appreciated, MRI brain, but unable to do MRI due to PPM -will hold off on carotid US because it won't change the medical management -seen and evaluated by personal opthalmologist, found to have acute decrease in OU vision without ocular changes (irregular left pupil, and miotic, deviated right pupil are baseline) -possible occipital lobe infarct - will continue ASA, high dose statin * Syncope,r/o ACS - Trop neg x3, ACS ruled out -episode of tachyarrthymia overnight to 140s,SVT -QTc 450 on ECG, on seroquel is concerning; - cardiology consulted - Echo pending - will cont on Toprol - Telemetry monitoring - will check PPM * Diarrhea - C- Diff negative - stool culture is pending -max Temp 99.9 overnight, afebrile now, no leukocytosis - [place] culture pending *ARIANE, resolved -Cr 1.4 on admission, today 0.9 - s/p IV hydration * Hx of HTN- BP controlled - will continue Toprol XL, amlodipine * Hx of hyroid disease, goiter - TSH low, will check T3,T4 - will continue methimazole -will check Thyroid US if it causing any dysphagia * Hx of Alzheimer's dementia with behavioral disturbance - will cont aricept, namenda - will hold seroquel for now due to concern for prolonged QTc, tachyarrythmia -swallowing is impaired - BACK JOINER done, rec dysphagia pureed diet , liquid to nectar thick consistency -Monitor pulm status.MBS if increasing congestion noted. MBS as out pt. if pt tolerates modified diet. *Hypokalemia- resolved -repleted -keep K>4.0 *Hypomagnesemia- resolved -repleted --keep Mg>2.0 * conjunctivitis - Rt- improving - will cont on eye drops FEN Fluids: PO intake adequate Electrolytes: replete as indicated Nutrition: dysphagia puree, nectar thick DVT prophylaxis: subq heparin, oob, ambulation Dispo: pt will need for higher level of care than [facility] Contact:Reji Mosquera, brother and HCP (cell [phone])- updated plan of care with brother via phone. Code Status : Full code Visit type - Emergency Visit Emergency Visit: Yes ED Registration Date: 03/05/17 Care time: The patient presented to the Emergency Department on the above date and was hospitalized for further evaluation of their emergent condition. - New Patient This patient is new to me today: Yes Date on this admission: 03/06/17 - Critical Care Critical Care patient: No
[2017-03-06 07:47] LABS: BASOPHIL 1.3 % (0-2.0); EOSINOPHIL 0.6 % (0-4.5); MCH 32.4 pg (25.7-33.7); MCHC 33.2 g/dl (32.0-36.0); MEAN CELL VOLUME 97.6 fl (80-96); MEAN PLT VOLUME 7.3 fl (7.5-11.1); NEUTROPHILS 68.1 % (42.8-82.8); PLATELET COUNT 234 K/MM3 (134-434); RDW 15.1 % (11.6-15.6); WHITE BLOOD COUNT 6.4 K/mm3 (4.0-10.8)
[2017-03-06 07:58] LABS: ALBUMIN 4.1 g/dl (3.5-5.0); ALK PHOS 89 U/L (32-92); ANION GAP 12 (8-16); BILIRUBIN,TOTAL 1.1 mg/dl (0.2-1.0); CALCIUM 9.2 mg/dl (8.4-10.2); CO2 18 mmol/L (22-28); CREATININE 1.1 mg/dl (0.6-1.3); GLUCOSE,RANDOM 130 mg/dl (74-106); PHOSPHOROUS 3.5 mg/dl (2.5-4.6); SGOT/AST 43 U/L (10-42); SGPT/ALT 24 U/L (10-40)
[2017-03-06] MEDS: amLODIPine BESYLATE 5 MG TABLET (FP) PO SCH (09:22)
[2017-03-06] MEDS: DONEPEZIL HCL 10 MG TABLET (FP) PO SCH (09:22)
[2017-03-06] MEDS: CITALOPRAM HYDROBROMIDE 20 MG TABLET (FP) PO SCH (09:22)
[2017-03-06] MEDS: ASPIRIN 81 MG CHEWABLE TABLETS PO SCH (09:22)
[2017-03-06] MEDS: FAMOTIDINE 20 MG TABLET PO SCH (09:22)
[2017-03-06] MEDS: METOPROLOL SUCCINATE 25 MG TAB.SR.24H (FP) PO SCH (09:22)
[2017-03-06] MEDS: METHIMAZOLE 5 MG TABLET (FP) PO SCH (09:22)
[2017-03-06] MEDS: MEMANTINE HCL 10 MG TABLET (FP) PO SCH ×2 (09:22→21:18)
--- NOTE | 2017-03-06 11:09 | PN ---
Progress Note, NEON TECHNICIAN - Note Progress Note: Pt reported to be tolerating puree and nectar thick liquid. For me, there is a delayed cough intermittently after nectar thick liquid. Possible stasis vs intermittent aspiration, possible mechanical in nature. Upon palpation,there seems to be an enlargement on the left side of her larynx. Thyroid u/s noted 2015 with nodule left lobe. Seems to be restricting laryngeal elevation. Case reviewed with PNP and nursing. Nursing reports that a family friend said they were investigating high thyroid levels. Pt is much more verbal today. Reports "blurry" vision. BISHOP PAIUTE. Continue dysphagia puree and nectar thick liquid. Monitor pulm status.MBS if increasing congestion noted. MBS as out pt. if pt tolerates modified diet.
[2017-03-06 13:18] LABS: T3 UPTAKE 36.2 % (30-39); THYROXINE (T4) 14.1 ug/dl (4.8-13.9)
[2017-03-06] MEDS ORDERED: QUEtiapine FUMARATE 25 MG TABLET (FP) PO ONE (14:00)
--- NOTE | 2017-03-06 16:09 | PN ---
Progress Note (short form) - Note Progress Note: initial presentation was , she was found on floor and difficulty seeing 86 year oldf emale hsitory of sick sinus syndrome, tia, hypertension. She lives in assisted living facislity and had ct scan done and it was normal. Patient have difficulty seeing and she had ct scan done it was normal pAST Medical History of dementia, thyroid disease, aplstic anemia, rheumatoid arthritis, hypertension, gerd, tia , had cataract surgery done before She has been more calmer in last two days. Vision has improved. carotid ultrasound was cancelled. she was seen by speech/swallow. MRI of brain cant be done. Neurological Examination Alert Oriented x 0 speech is normal and able to follow command no face asymmetry, te both eyes are midline, and visual acquity she can count finger in both eyes d moving all extremity sensation is normal ct head unremarkable done on march 04 Assessment-- likely she have occiptal stroke , clinically has improved, she is on aspirin and statin, cant get mri of brain Plan-- suggest to repeat ct scan to confirm stroke - continue aspirin and statin - dvt prophylaxis, speech and pt -woudl follow up with primary Thanks for consult Fabian Leigh MD
[2017-03-06] MEDS: ATORVASTATIN CA 40 MG TABLET (FP) PO SCH (21:18)
[2017-03-07] MEDS: TOBRA 0.3%/DEXAMETH 0.1% OPHTHALMIC SUSP 2.5 ML BTL OD SCH ×3 (06:32→21:21)
[2017-03-07] MEDS: HEPARIN NA (PORCINE) 5,000 UNITS/ML 1ML VIAL SQ SCH ×3 (06:33→21:21)
--- NOTE | 2017-03-07 07:30 | PN ---
Physical Exam: SUBJECTIVE: Patient seen and examined this AM OBJECTIVE: Vital Signs Period Temp Pulse Resp BP Sys/Fowler Pulse Ox Last 24 Hr 97.5 F-99.1 F 73-81 16-20 118-168/62-76 95-98 GENERAL: The patient is awake, alert, and fully oriented, in no acute distress. HEAD: Normal with no signs of trauma. EYES: PERRL, extraocular movements intact, sclera anicteric, conjunctiva clear. No ptosis. ENT: Ears normal, nares patent, oropharynx clear without exudates, moist mucous membranes. NECK: Trachea midline, full range of motion, supple. LUNGS: Breath sounds equal, clear to auscultation bilaterally, no wheezes, no crackles, no accessory muscle use. HEART: Regular rate and rhythm, S1, S2 without murmur, rub or gallop. ABDOMEN: Soft, nontender, nondistended, normoactive bowel sounds, no guarding, no rebound, no hepatosplenomegaly, no masses. EXTREMITIES: 2+ pulses, warm, well-perfused, no edema. NEUROLOGICAL: Cranial nerves II through XII grossly intact. Normal speech, gait not observed. PSYCH: Normal mood, normal affect. SKIN: Warm, dry, normal turgor, no rashes or lesions noted Laboratory Results - last 24 hr 03/06/17 03/06/17 03/06/17 07:00 07:00 07:10 WBC 6.4 RBC 3.73 Hgb 12.1 Hct 36.5 MCV 97.6 H MCH 32.4 MCHC 33.2 RDW 15.1 Plt Count 234 MPV 7.3 L Neutrophils % 68.1 Lymphocytes % 12.7 D Monocytes % 17.3 H Eosinophils % 0.6 Basophils % 1.3 Sodium 147 H Potassium 3.9 Chloride 117 H Carbon Dioxide 18 L Anion Gap 12 BUN 30 H D Creatinine 1.1 Creat Clearance w eGFR 47.09 Random Glucose 130 H Calcium 9.2 Phosphorus 3.5 Magnesium 2.0 Total Bilirubin 1.1 H AST 43 H ALT 24 D Alkaline Phosphatase 89 Total Protein 7.0 Albumin 4.1 Resin T3 Uptake 36.2 Active Medications Generic Name Dose Route Start Last Admin Trade Name Freq PRN Reason Stop Dose Admin Amlodipine Besylate 5 mg 03/05/17 10:00 03/06/17 09:22 Norvasc - PO 5 mg DAILY DIANNE Administration Aspirin 81 mg 03/05/17 10:00 03/06/17 09:22 Asa - PO 81 mg DAILY DIANNE Administration Atorvastatin Calcium 80 mg 03/05/17 22:00 03/06/17 21:18 Lipitor - PO 80 mg HS DIANNE Administration Citalopram Hydrobromide 20 mg 03/05/17 10:00 03/06/17 09:22 Celexa - PO 20 mg DAILY DIANNE Administration Donepezil HCl 10 mg 03/05/17 10:00 03/06/17 09:22 Aricept - PO 10 mg DAILY DIANNE Administration Famotidine 20 mg 03/05/17 10:00 03/06/17 09:22 Pepcid - PO 20 mg DAILY DIANNE Administration Heparin Sodium (Porcine) 5,000 unit 03/05/17 14:00 03/07/17 06:33 Heparin - SQ 5,000 unit TID DIANNE Administration Memantine 10 mg 03/04/17 22:00 03/06/17 21:18 Namenda - PO 10 mg BID DIANNE Administration Methimazole 5 mg 03/05/17 10:00 03/06/17 09:22 Tapazole - PO 5 mg DAILY DIANNE Administration Metoprolol Succinate 25 mg 03/05/17 10:00 03/06/17 09:22 Toprol Xl - PO 25 mg DAILY DIANNE Administration Tobramycin/Dexamethasone 1 drop 03/05/17 11:00 03/07/17 06:32 Tobradex Ophthalmic Suspension - OD Not Given TID DIANNE ASSESSMENT/PLAN: A/P This is an 86 year-old female with a PMH significant for HTN,Alzheimer's dementia, h/o TIA, sick sinus syndrome s/p PPM,GED, aplastic anemia, GERD,RA and thyroid disease,who was sent from the [facility] after being found on the floor. * Unwitnessed fall, ? syncope, with visual changes,r/o CVA - neuro consult appreciated, MRI brain, but unable to do MRI due to PPM -will hold off on carotid US because it won't change the medical management -seen and evaluated by personal opthalmologist, found to have acute decrease in OU vision without ocular changes (irregular left pupil, and miotic, deviated right pupil are baseline) -possible occipital lobe infarct - will continue ASA, high dose statin * Syncope,r/o ACS - will cont on Toprol - Telemetry monitoring - PPM information card is copied in pt hard chart (Justin ryan DR) -[employer] has been called and came in today to see pt. (unaware that it was checked yesterday) now showing bursts of SVT and AF in the past 24 hours braking on own. Strips in chart - do not see Echo report noted in either chart, Cardiology, please submit Echo from 03/05 that shows complete * Diarrhea - C- Diff negative - stool culture is pending but afebrile and no leukocytosis *hypernatremia -noted trending Na levels -appears dehydrated -started on D51/2NS at 100 and will trend electrolytes and sodium * Hx of HTN- BP controlled - will continue Toprol XL, amlodipine * Hx of thyroid disease, goiter - TSH low - T3 resin uptake back at 35 (norm) - T4/T3 ordered and pending since 03/06 - will continue methimazole * Hx of Alzheimer's dementia with behavioral disturbance - will cont aricept, namenda - will hold seroquel for now due to concern for prolonged QTc, tachyarrythmia -swallowing is impaired - [employer]EN [employer]INTER done, rec dysphagia pureed diet , liquid to nectar thick consistency -Monitor pulm status.MBS if increasing congestion noted. MBS as out pt. if pt tolerates modified diet. *occipital injury -remains confused, h/o dementia -per neurology consult, pt for scheduled for repeat head CT today, unable to obtain MRI with PPM * conjunctivitis - Rt- improving - will cont on eye drops FEN Fluids: PO intake adequate Electrolytes: replete as indicated Nutrition: dysphagia puree, nectar thick Doe in place, will d/c today DVT prophylaxis: subq heparin, oob, ambulation * disposition planning -will contact social work, watch caser for placement of higher level of care Dispo: pt will need for higher level of care than [facility] Contact:Reji Mosquera, brother and HCP (cell [phone]) Code Status : Full code Visit type - Emergency Visit Emergency Visit: Yes ED Registration Date: 03/05/17 Care time: The patient presented to the Emergency Department on the above date and was hospitalized for further evaluation of their emergent condition. - New Patient This patient is new to me today: Yes Date on this admission: 03/07/17 - Critical Care Critical Care patient: No - Discharge Referral Referred to [facility]C.: No
[2017-03-07 08:10] LABS: ANION GAP 11 (8-16); CALCIUM 9.5 mg/dl (8.4-10.2); CO2 21 mmol/L (22-28); CREATININE 1.3 mg/dl (0.6-1.3); GLUCOSE,RANDOM 134 mg/dl (74-106)
[2017-03-07] MEDS: ASPIRIN 81 MG CHEWABLE TABLETS PO SCH (09:59)
[2017-03-07] MEDS: FAMOTIDINE 20 MG TABLET PO SCH (09:59)
[2017-03-07] MEDS: MEMANTINE HCL 10 MG TABLET (FP) PO SCH ×2 (09:59→21:21)
[2017-03-07] MEDS: METHIMAZOLE 5 MG TABLET (FP) PO SCH (09:59)
[2017-03-07] MEDS: DONEPEZIL HCL 10 MG TABLET (FP) PO SCH (09:59)
[2017-03-07] MEDS: amLODIPine BESYLATE 5 MG TABLET (FP) PO SCH (09:59)
[2017-03-07] MEDS: METOPROLOL SUCCINATE 25 MG TAB.SR.24H (FP) PO SCH (09:59)
[2017-03-07] MEDS: CITALOPRAM HYDROBROMIDE 20 MG TABLET (FP) PO SCH (09:59)
[2017-03-07] MEDS: DEXTROSE 5%-0.45% SALINE 1,000 ML IV SCH (10:00)
[2017-03-07] MEDS ORDERED: PT OWN MED DRAWER 7, Y5N ONE (13:30)
[2017-03-07] MEDS: ATORVASTATIN CA 40 MG TABLET (FP) PO SCH (21:21)
--- NOTE | 2017-03-08 04:39 | ED.PROV ---
Physicial Exam I saw and examined the patient. - Vital Signs Last Vital Signs Temp Pulse Resp BP Pulse Ox 98.1 F 94 H 18 143/70 97 03/07/17 23:22 03/07/17 23:22 03/07/17 23:22 03/07/17 23:22 03/07/17 23:22 - Physical Exam Reason for Response: 03/08/17 04:14 Called to see patient who had episode of RVR Afib while in bathroom;rhythm seen on strip and noted to be approx 148/min.episode lasted several minutes and broke spontaneously to paced regular rhythm at 87/min BP of 144/65 measured when patient was returned to bed(still in rapid rhythm) BP of 123/71 measured after rapid rhythm resolved. The patient was asymptomatic throughout episode. She is at baseline mental status of verbal responsive and mildly confused(oriented to person only but accurately recalling remote events) 12 lead EKG performed approx 40 min after episode shows Afib at 100/min;no acute ST or T wave abnormalities seen. Admission EKG was NSR at 73/min . QRS complex essentially unchanged from current EKG tracing. Comp/CBC/MG/Phos/Cardiac profile/INR/TSH sent in order to evaluate for etiology of cardiac rhythm change and progressive baseline tachycardia. Meanwhile, patient remains asymptomatic with apparent maintenance of adequate perfusion.
[2017-03-08 04:43] LABS: BASOPHIL 0.4 % (0-2.0); EOSINOPHIL 3.2 % (0-4.5); MCH 33.2 pg (25.7-33.7); MCHC 33.7 g/dl (32.0-36.0); MEAN CELL VOLUME 98.5 fl (80-96); MEAN PLT VOLUME 7.6 fl (7.5-11.1); NEUTROPHILS 43.7 % (42.8-82.8); PLATELET COUNT 225 K/MM3 (134-434); RDW 15.6 % (11.6-15.6); WHITE BLOOD COUNT 6.3 K/mm3 (4.0-10.0)
[2017-03-08 05:11] LABS: CREATININE 1.9 mg/dL (0.55-1.02); GLUCOSE,RANDOM 138 mg/dL (74-106)
[2017-03-08 05:12] LABS: ALBUMIN 3.5 g/dl (3.4-5.0); ANION GAP 11 (8-16); BILIRUBIN,TOTAL 0.4 mg/dL (0.2-1.0); CALCIUM 8.8 mg/dL (8.5-10.1); CO2 20 mmol/L (21-32); MAGNESIUM 2.2 mg/dL (1.8-2.4); PHOSPHOROUS 4.5 mg/dL (2.5-4.9); SGOT/AST 19 U/L (15-37); SGPT/ALT 27 U/L (12-78)
[2017-03-08 05:13] LABS: ALK PHOS 106 U/L (45-117)
[2017-03-08 05:39] LABS: TROPONIN I 0.02 ng/ml (0.00-0.05)
[2017-03-08] MEDS ORDERED: PT OWN MED DRAWER 7, Y5N ONE ×2 (06:20→21:16)
[2017-03-08] MEDS: HEPARIN NA (PORCINE) 5,000 UNITS/ML 1ML VIAL SQ SCH ×4 (06:26→22:00)
[2017-03-08] MEDS: TOBRA 0.3%/DEXAMETH 0.1% OPHTHALMIC SUSP 2.5 ML BTL OD SCH ×3 (06:27→21:20)
--- NOTE | 2017-03-08 07:15 | PN ---
Physical Exam: SUBJECTIVE: Patient seen and examined this AM, Pt had a run of AF rate 180's overnight with activity to bathroom. Appreciate ER response and noted that pt broke rate and rhythm on own once in bed. Labs noted from response. OBJECTIVE: Vital Signs Period Temp Pulse Resp BP Sys/Fowler Pulse Ox Last 24 Hr 98 F-98.2 F 87-117 18-20 123-144/65-71 97-98 GENERAL: The patient is awake, alert, and fully oriented,x 0. continued with confusion HEAD: Normal with no signs of trauma. EYES: right eye pupil 1 mm, left eye 4mm, unchanged since admission, seen by opthamology ENT: + coughing when eating in bed, does much better when OOB to chair NECK: Trachea midline, full range of motion, supple. LUNGS: Breath sounds equal, clear to auscultation bilaterally, no wheezes, no crackles, no accessory muscle use. HEART: Regular rate and rhythm, S1, S2 at this moment, with activity, may rise rate and convert to AF at a higher rate without murmur, rub or gallop. ABDOMEN: Soft, nontender, nondistended, normoactive bowel sounds, no guarding, no rebound, no hepatosplenomegaly, no masses. EXTREMITIES: 2+ pulses, warm, well-perfused, no edema. NEUROLOGICAL: confused, verbalizes needs. Follow some commands PSYCH: Normal mood, normal affect. SKIN: Warm, dry, poor turgor, no rashes or lesions noted Laboratory Results - last 24 hr 03/07/17 03/08/17 03/08/17 07:15 04:00 04:00 WBC 6.3 RBC 3.69 Hgb 12.3 D Hct 36.4 MCV 98.5 H MCH 33.2 MCHC 33.7 RDW 15.6 Plt Count 225 MPV 7.6 Neutrophils % 43.7 Lymphocytes % 33.3 Monocytes % 19.4 H Eosinophils % 3.2 Basophils % 0.4 Sodium 149 H 146 H Potassium 3.8 3.6 Chloride 117 H 115 H Carbon Dioxide 21 L 20 L Anion Gap 11 11 BUN 43 H D 53 H Creatinine 1.3 1.9 H Creat Clearance w eGFR 25.06 Random Glucose 134 H 138 H Calcium 9.5 8.8 Phosphorus 4.5 Magnesium 2.2 Total Bilirubin 0.4 AST 19 ALT 27 Alkaline Phosphatase 106 Creatine Kinase Creatine Kinase Index CK-MB (CK-2) Troponin I Total Protein 7.0 Albumin 3.5 TSH 03/08/17 03/08/17 04:00 04:00 WBC RBC Hgb Hct MCV MCH MCHC RDW Plt Count MPV Neutrophils % Lymphocytes % Monocytes % Eosinophils % Basophils % Sodium Potassium Chloride Carbon Dioxide Anion Gap BUN Creatinine Creat Clearance w eGFR Random Glucose Calcium Phosphorus Magnesium Total Bilirubin AST ALT Alkaline Phosphatase Creatine Kinase 223 H Creatine Kinase Index 1.5 CK-MB (CK-2) 3.440 Troponin I 0.02 Total Protein Albumin TSH < 0.01 L Active Medications Generic Name Dose Route Start Last Admin Trade Name Freq PRN Reason Stop Dose Admin Amlodipine Besylate 5 mg 03/05/17 10:00 03/07/17 09:59 Norvasc - PO 5 mg DAILY DIANNE Administration Aspirin 81 mg 03/05/17 10:00 03/07/17 09:59 Asa - PO 81 mg DAILY DIANNE Administration Atorvastatin Calcium 80 mg 03/05/17 22:00 03/07/17 21:21 Lipitor - PO Not Given HS DIANNE Citalopram Hydrobromide 20 mg 03/05/17 10:00 03/07/17 09:59 Celexa - PO 20 mg DAILY DIANNE Administration Donepezil HCl 10 mg 03/05/17 10:00 03/07/17 09:59 Aricept - PO 10 mg DAILY DIANNE Administration Famotidine 20 mg 03/05/17 10:00 03/07/17 09:59 Pepcid - PO 20 mg DAILY DIANNE Administration Heparin Sodium (Porcine) 5,000 unit 03/05/17 14:00 03/08/17 06:26 Heparin - SQ 5,000 unit TID DIANNE Administration Dextrose/Sodium Chloride 1,000 mls @ 100 mls/hr 03/07/17 09:15 03/07/17 10:00 D5-1/2ns - IV 100 mls/hr ASDIR DIANNE Administration Memantine 10 mg 03/04/17 22:00 03/07/17 21:21 Namenda - PO Not Given BID DIANNE Methimazole 5 mg 03/05/17 10:00 03/07/17 09:59 Tapazole - PO 5 mg DAILY DIANNE Administration Metoprolol Succinate 25 mg 03/05/17 10:00 03/07/17 09:59 Toprol Xl - PO 25 mg DAILY DIANNE Administration Tobramycin/Dexamethasone 1 drop 03/05/17 11:00 03/08/17 06:27 Tobradex Ophthalmic Suspension - OD 1 drop TID DIANNE Administration ASSESSMENT/PLAN: A/P This is an 86 year-old female with a PMH significant for HTN,Alzheimer's dementia, h/o TIA, sick sinus syndrome s/p PPM,GED, aplastic anemia, GERD,RA and thyroid disease,who was sent from the [facility] after being found on the floor. * Unwitnessed fall, ? 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 Cleared from [employer] to have MRI with PPM -will hold off on carotid US because it won't change the medical management -seen and evaluated by personal opthalmologist, found to have acute decrease in OU vision without ocular changes (irregular left pupil, and miotic, deviated right pupil are baseline) -possible occipital lobe infarct - will continue ASA, high dose statin * Syncope,r/o ACS with noted SVT/AF on monitor and PPM hx pulled from [employer] - will change toprol xl to metoprolol BID to see if this stabilizes rhythm better then daily dose. Noted last evening to have run of AF with activity - Telemetry monitoring - PPM information card is copied in pt hard chart ([employer], Justin CASTELLANOS PPM) -[employer] has been called and came in 03/07 to see pt. (unaware that it was checked 03/06) now showing bursts of SVT and AF in the past 24 hours braking on own and again overnight Strips in chart - do not see Echo report noted in either chart, Cardiology, please submit Echo from 03/05 that shows complete * Diarrhea resolved - C- Diff negative - stool culture is pending but afebrile and no leukocytosis *hypernatremia -noted trending Na levels -appears dehydrated -started on D51/2NS at 100 and will trend electrolytes and sodium showing to trend down * Hx of HTN- BP controlled - will continue, amlodipine * Hx of thyroid disease, goiter - TSH low still noted this AM labs - T3 resin uptake back at 35 (norm) - T4/T3 ordered and pending since 03/06 - will continue methimazole * Hx of Alzheimer's dementia with behavioral disturbance - will cont aricept, namenda - will hold seroquel for now due to concern for prolonged QTc, tachyarrythmia - swallowing is impaired - 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 MBS as out pt. if pt tolerates modified diet. *occipital injury -remains confused, h/o dementia -per neurology consult, pt had second head CT remains unchanged, scheduling MRI for Thursday * conjunctivitis - Rt- improving - will cont on eye drops FEN Fluids: PO intake adequate Electrolytes: replete as indicated Nutrition: dysphagia puree, nectar thick Doe in place, will d/c today DVT prophylaxis: subq heparin, oob, ambulation * disposition planning -will contact social work, case coordinator for placement of higher level of care Dispo: pt will need for higher level of care than [facility] and will require hospitalization until cardiac status is stabilized Contact:Reji Moqsuera, brother and HCP (cell [phone]) Code Status : Full code Visit type - Emergency Visit Emergency Visit: Yes ED Registration Date: 03/05/17 Care time: The patient presented to the Emergency Department on the above date and was hospitalized for further evaluation of their emergent condition. - New Patient This patient is new to me today: No - Critical Care Critical Care patient: No - Discharge Referral Referred to [facility] Med [facility].C.: No
[2017-03-08] MEDS: DEXTROSE 5%-0.45% SALINE 1,000 ML IV SCH (09:35)
[2017-03-08] MEDS: DONEPEZIL HCL 10 MG TABLET (FP) PO SCH (10:54)
[2017-03-08] MEDS: amLODIPine BESYLATE 5 MG TABLET (FP) PO SCH (10:54)
[2017-03-08] MEDS: CITALOPRAM HYDROBROMIDE 20 MG TABLET (FP) PO SCH (10:54)
[2017-03-08] MEDS: METOPROLOL TARTRATE 25 MG TABLET (FP) PO SCH ×2 (10:54→21:18)
[2017-03-08] MEDS: ASPIRIN 81 MG CHEWABLE TABLETS PO SCH (10:54)
[2017-03-08] MEDS: MEMANTINE HCL 10 MG TABLET (FP) PO SCH ×2 (10:54→21:18)
[2017-03-08] MEDS: METHIMAZOLE 5 MG TABLET (FP) PO SCH (10:55)
[2017-03-08] MEDS: FAMOTIDINE 20 MG TABLET PO SCH (10:55)
--- NOTE | 2017-03-08 12:17 | PN ---
Progress Note, Physician History of Present Illness: Seen and examined Left eye vision worse then right Tele with paroxysmal SVT to 160s with NSR Underwent PPM interrogation yesterday. - Current Medication List Current Medications: Active Medications Amlodipine Besylate (Norvasc -) 5 mg PO DAILY [facility] Last Admin: 03/08/17 10:54 Dose: 5 mg Aspirin (Asa -) 81 mg PO DAILY [facility] Last Admin: 03/08/17 10:54 Dose: 81 mg Atorvastatin Calcium (Lipitor -) 80 mg PO HS [facility] Last Admin: 03/07/17 21:21 Dose: Not Given Citalopram Hydrobromide (Celexa -) 20 mg PO DAILY [facility] Last Admin: 03/08/17 10:54 Dose: 20 mg Donepezil HCl (Aricept -) 10 mg PO DAILY [facility] Last Admin: 03/08/17 10:54 Dose: 10 mg Famotidine (Pepcid -) 20 mg PO DAILY [facility] Last Admin: 03/08/17 10:55 Dose: 20 mg Heparin Sodium (Porcine) (Heparin -) 5,000 unit SQ TID [facility] Last Admin: 03/08/17 06:26 Dose: 5,000 unit Dextrose/Sodium Chloride (D5-1/2ns -) 1,000 mls @ 100 mls/hr IV ASDIR [facility] Last Admin: 03/07/17 10:00 Dose: 100 mls/hr Memantine (Namenda -) 10 mg PO BID [facility] Last Admin: 03/08/17 10:54 Dose: 10 mg Methimazole (Tapazole -) 5 mg PO DAILY [facility] Last Admin: 03/08/17 10:55 Dose: 5 mg Metoprolol Tartrate (Lopressor -) 25 mg PO BID [facility] Last Admin: 03/08/17 10:54 Dose: 25 mg Tobramycin/Dexamethasone (Tobradex Ophthalmic Suspension -) 1 drop OD TID [facility] Last Admin: 03/08/17 06:27 Dose: 1 drop - Objective Vital Signs: Vital Signs Temperature 98.1 F 03/07/17 23:22 Pulse Rate 107 H 03/08/17 04:10 Respiratory Rate 19 03/08/17 08:06 Blood Pressure 123/71 03/08/17 04:10 O2 Sat by Pulse Oximetry (%) 97 03/08/17 08:06 Constitutional: Yes: No Distress, Calm Eyes: Yes: Other (left eye pupil dilated) HENT: Yes: WNL Neck: Yes: WNL, Trachea Midline Cardiovascular: Yes: Regular Rate and Rhythm Respiratory: Yes: CTA Bilaterally Extremities: Yes: WNL Edema: No Labs: CBC, BMP 03/08/17 04:00 03/08/17 04:00 INR, PTT INR 1.07 (0.82-1.09) 03/04/17 11:58 Assessment/Plan 86 [facility] resident with h/o SSS s/p PPM, TIA, HTN, dementia, aplastic anemia, ra, gerd who presents s/p fall with new vision changes and concern for occiptal stroke . Fall/possible CVA - CVA work up per neuro. - would get echo -As per neuro she is clinically improving on asa and statin and awaiting brain MRI -Still awaiting echo possible arrhythmia - tachycardia on telemetry. -[employer] interrogation reviewed. PAF on 03/06/2017 at 03:13 for 23 second duration. -Recurrent episodes of SVT/AF which is most likely related to hyperthyroid state (TSH<0) -Would increase metoprolol 25mg BID (from Metoprolol XL 25 QD) -Needs thyroid state addressed -I have discussed with neuro my concerns for her Afib and CVA risk and my recommendation starting AC, Dr. Leigh wanted to wait another 24 hours and to obtain the MRI prior to initiation of AC to further assess size of CVA. HTN - controlled on current regimen con't
[2017-03-08] MEDS: CLOPIDOGREL BISULFATE 75 MG TABLET (FP) PO SCH (15:00)
[2017-03-08 20:53] LABS: ANION GAP 17 (8-16); CALCIUM 8.8 mg/dl (8.4-10.2); CO2 13 mmol/L (22-28); GLUCOSE,RANDOM 139 mg/dl (74-106)
[2017-03-08 20:54] LABS: ALBUMIN 3.7 g/dl (3.5-5.0); ALK PHOS 105 U/L (32-92); BILIRUBIN,TOTAL 0.4 mg/dl (0.2-1.0); MAGNESIUM 2.2 mg/dL (1.8-2.4); PHOSPHOROUS 4.6 mg/dl (2.5-4.6); SGOT/AST 22 U/L (10-42); SGPT/ALT 26 U/L (10-40); TOT PROT 7.1 g/dl (6.4-8.3)
[2017-03-08] MEDS: ATORVASTATIN CA 40 MG TABLET (FP) PO SCH (21:18)
[2017-03-08] MEDS ORDERED: LORazepam 2 MG/ML SDV VIAL ONE (21:59)
[2017-03-09] MEDS: TOBRA 0.3%/DEXAMETH 0.1% OPHTHALMIC SUSP 2.5 ML BTL OD SCH ×3 (06:12→21:21)
[2017-03-09] MEDS: HEPARIN NA (PORCINE) 5,000 UNITS/ML 1ML VIAL SQ SCH (06:12)
--- NOTE | 2017-03-09 08:19 | PN ---
Physical Exam: SUBJECTIVE: Patient seen and examined, reports blurred vision and feeling tired , denies any chest pain or shortness of breath. OBJECTIVE: Patient is a 86 y/o female with past medical history of alzheimer's dementia, thyroid disease (goiter), RA, aplastic anemia, GERD, HTN, TIA and sick sinus syndrome (ppm). Vital Signs Period Temp Pulse Resp BP Sys/Fowler Pulse Ox Last 24 Hr 98.5 F-98.6 F 66-82 16-20 138-147/63-82 97-98 GENERAL: The patient is awake, alert, and fully oriented, in no acute distress. HEAD: Normal with no signs of trauma. EYES: left eye-->1mm with stagmus, injected sclera Right eye--> 3mm irregular, extraocular movements intact, sclera anicteric, conjunctiva clear. No ptosis. ENT: Ears normal, nares patent, oropharynx clear without exudates, moist mucous membranes. NECK: enlarged thyroid, slight deviation to left, full range of motion, supple. LUNGS: Breath sounds equal, clear to auscultation bilaterally, no wheezes, no crackles, no accessory muscle use. HEART: Regular rate and rhythm, S1, S2 without murmur, rub or gallop. ABDOMEN: Soft, nontender, nondistended, normoactive bowel sounds, no guarding, no rebound, no hepatosplenomegaly, no masses. EXTREMITIES: 2+ pulses, warm, well-perfused, no edema. NEUROLOGICAL: Cranial nerves II through XII grossly intact. Normal speech, ambulated at bedside, unsteady gait, with walker, assistance of one person. PSYCH: Normal mood, normal affect. SKIN: Warm, dry, normal turgor, no rashes or lesions noted Laboratory Results - last 24 hr CBC WBC 6.8 K/mm3 (4.0-10.8) 03/09/17 08:00 RBC 3.73 M/mm3 (3.60-5.2) 03/09/17 08:00 Hgb 12.2 GM/dl (10.7-15.3) 03/09/17 08:00 Hct 36.3 % (32.4-45.2) 03/09/17 08:00 MCV 97.3 fl (80-96) H 03/09/17 08:00 MCH 32.6 pg (25.7-33.7) 03/09/17 08:00 MCHC 33.5 g/dl (32.0-36.0) 03/09/17 08:00 RDW 14.7 % (11.6-15.6) 03/09/17 08:00 Plt Count 266 K/MM3 (134-434) 03/09/17 08:00 MPV 7.9 fl (7.5-11.1) 03/09/17 08:00 Neutrophils % 54.2 % (42.8-82.8) D 03/09/17 08:00 Lymphocytes % 26.5 % (8-40) D 03/09/17 08:00 Monocytes % 16.4 % (3.8-10.2) H 03/09/17 08:00 Eosinophils % 2.8 % (0-4.5) D 03/09/17 08:00 Basophils % 0.1 % (0-2.0) 03/09/17 08:00 CMP Sodium 140 mmol/L (136-145) 03/09/17 09:30 Potassium 3.1 mmol/L (3.5-5.1) L 03/09/17 09:30 Chloride 111 mmol/L (98-107) H 03/09/17 09:30 Carbon Dioxide 22 mmol/L (22-28) D 03/09/17 09:30 Anion Gap 7 (8-16) L 03/09/17 09:30 BUN 50 mg/dl (7-18) H 03/09/17 09:30 Creatinine 1.7 mg/dl (0.6-1.3) H 03/09/17 09:30 Creat Clearance w eGFR 28.50 (>60) 03/09/17 09:30 Random Glucose 167 mg/dl (74-106) H D 03/09/17 09:30 Calcium 8.7 mg/dl (8.4-10.2) 03/09/17 09:30 Phosphorus 4.6 mg/dl (2.5-4.6) D 03/08/17 06:00 Magnesium 1.9 mg/dL (1.8-2.4) 03/09/17 09:15 Total Bilirubin 0.6 mg/dl (0.2-1.0) D 03/09/17 09:30 AST 16 U/L (10-42) D 03/09/17 09:30 ALT 20 U/L (10-40) D 03/09/17 09:30 Alkaline Phosphatase 77 U/L (32-92) D 03/09/17 09:30 Creatine Kinase 223 IU/L (26-192) H 03/08/17 04:00 Creatine Kinase Index 1.5 % (0.0-5.0) 03/08/17 04:00 CK-MB (CK-2) 3.440 ng/mL (0.5-3.6) 03/08/17 04:00 Troponin I 0.02 ng/ml (0.00-0.05) 03/08/17 04:00 Total Protein 5.9 g/dl (6.4-8.3) L 03/09/17 09:30 Albumin 3.4 g/dl (3.5-5.0) L 03/09/17 09:30 TSH < 0.01 uIU/ml (0.358-3.74) L 03/08/17 04:00 Resin T3 Uptake 36.2 % (30-39) 03/06/17 07:10 Active Medications Generic Name Dose Route Start Last Admin Trade Name Freq PRN Reason Stop Dose Admin Amlodipine Besylate 5 mg 03/05/17 10:00 03/08/17 10:54 Norvasc - PO 5 mg DAILY DIANNE Administration Aspirin 81 mg 03/05/17 10:00 03/08/17 10:54 Asa - PO 81 mg DAILY DIANNE Administration Atorvastatin Calcium 80 mg 03/05/17 22:00 03/08/17 21:18 Lipitor - PO 80 mg HS DIANNE Administration Citalopram Hydrobromide 20 mg 03/05/17 10:00 03/08/17 10:54 Celexa - PO 20 mg DAILY DIANNE Administration Clopidogrel Bisulfate 75 mg 03/08/17 14:45 03/08/17 15:00 Plavix - PO 75 mg DAILY DIANNE Administration Donepezil HCl 10 mg 03/05/17 10:00 03/08/17 10:54 Aricept - PO 10 mg DAILY DIANNE Administration Famotidine 20 mg 03/05/17 10:00 03/08/17 10:55 Pepcid - PO 20 mg DAILY DIANNE Administration Heparin Sodium (Porcine) 5,000 unit 03/05/17 14:00 03/09/17 06:12 Heparin - SQ Not Given TID DIANNE Dextrose/Sodium Chloride 1,000 mls @ 100 mls/hr 03/07/17 09:15 03/08/17 09:35 D5-1/2ns - IV 100 mls/hr ASDIR DIANNE Administration Memantine 10 mg 03/04/17 22:00 03/08/17 21:18 Namenda - PO 10 mg BID DIANNE Administration Methimazole 5 mg 03/05/17 10:00 03/08/17 10:55 Tapazole - PO 5 mg DAILY DIANNE Administration Metoprolol Tartrate 25 mg 03/08/17 10:00 03/08/17 21:18 Lopressor - PO 25 mg BID DIANNE Administration Tobramycin/Dexamethasone 1 drop 03/05/17 11:00 03/09/17 06:12 Tobradex Ophthalmic Suspension - OD 1 drop TID DIANNE Administration IMAGING - CT of head 03/07: central atropy, ischemic matter - echo 03/06: lv wnl, moderate tr - thyroid ultrasound: large complex left lobe mass stable as per radiologist, Dr Jimenez ASSESSMENT/PLAN: 1) cardiology Unwitnessed fall, ? syncope, with visual changes,r/o CVA - discussed with radiography technician (Miguel Angel) unable to perform MRI with PPM, although PPM is compatible - pending carotid doppler - unable to perform cta of brain due to ARIANE - continue statin (high dose) -seen and evaluated by personal long haul truck driver (Robin), found to have acute decrease in OU vision without ocular changes (irregular left pupil, and miotic, deviated right pupil are baseline) new onset afib - ppm interrograted, runs of afib noted, 03/08 paroxysmal afib noted on cardiac monitoring - yojana vasc score 4, start eliquis 2.5mg BID - cardiology (Dr Sidhu) consulted and following hypertension - b/p at goal, continue amlodipine 2) neuro r/o cva - unable to obtain MRI, can not obtain cta of brain due to ariane - continue eliquis and high dose statin - Dr Morelos neurology consulted and following - continue q6h neuro checks Alzheimer dementia - continue aricept, namenda 3) nephrology ariane - creatine 1.7 baseline 0.9 - likely secondary to hypovolemia, continue ivf, repeat bmp at 1400 4) endo thyroid disease - tsh noted to be low, contributing factor to afib, t3 is wnl, pending t4 - continue methimazole f/e/n - CREDIT REVIEW ANALYST completed, rec dysphagia pureed diet , liquid to nectar thick consistency -Monitor pulm status.MBS if increasing congestion noted, MBS as out pt. if pt tolerates modified diet. hypokalemia - replete potassium, add potassium to ivf 1/2ns w/40meq kci @100ml/hr - keep mag above 2.0, replete magnesium 1gm iv - repeat bmp at 1400 DVT prophylaxis: -eliquis -pt -scd Dispo: pt will need for higher level of care than [facility] and will require hospitalization until cardiac status is stabilized Contact:Reji Mosquera, brother and HCP (cell [phone]) Code Status : Full code Visit type - Emergency Visit Emergency Visit: Yes ED Registration Date: 03/05/17 Care time: The patient presented to the Emergency Department on the above date and was hospitalized for further evaluation of their emergent condition. - New Patient This patient is new to me today: Yes Date on this admission: 03/09/17 - Critical Care Critical Care patient: No - Discharge Referral Referred to [facility] Yes Physician Referral: Von Flores MD (Int Med)
[2017-03-09] MEDS: amLODIPine BESYLATE 5 MG TABLET (FP) PO SCH (09:03)
[2017-03-09] MEDS: FAMOTIDINE 20 MG TABLET PO SCH (09:03)
[2017-03-09] MEDS: CITALOPRAM HYDROBROMIDE 20 MG TABLET (FP) PO SCH (09:03)
[2017-03-09] MEDS: CLOPIDOGREL BISULFATE 75 MG TABLET (FP) PO SCH (09:03)
[2017-03-09] MEDS: MEMANTINE HCL 10 MG TABLET (FP) PO SCH ×2 (09:03→21:21)
[2017-03-09] MEDS: METOPROLOL TARTRATE 25 MG TABLET (FP) PO SCH ×2 (09:03→21:20)
[2017-03-09] MEDS: METHIMAZOLE 5 MG TABLET (FP) PO SCH (09:03)
[2017-03-09] MEDS: DEXTROSE 5%-0.45% SALINE 1,000 ML IV SCH (09:03)
[2017-03-09] MEDS: ASPIRIN 81 MG CHEWABLE TABLETS PO SCH (09:03)
[2017-03-09] MEDS: DONEPEZIL HCL 10 MG TABLET (FP) PO SCH (09:03)
[2017-03-09 09:08] LABS: INR 1.06 (0.82-1.09); PROTHROMBIN TIME (PATIENT) 11.9 SEC (10.2-13.0)
[2017-03-09 10:02] LABS: ALBUMIN 3.4 g/dl (3.5-5.0); ALK PHOS 77 U/L (32-92); ANION GAP 7 (8-16); BILIRUBIN,TOTAL 0.6 mg/dl (0.2-1.0); CALCIUM 8.7 mg/dl (8.4-10.2); CO2 22 mmol/L (22-28); CREATININE 1.7 mg/dl (0.6-1.3); GLUCOSE,RANDOM 167 mg/dl (74-106); SGOT/AST 16 U/L (10-42); SGPT/ALT 20 U/L (10-40); TOT PROT 5.9 g/dl (6.4-8.3)
[2017-03-09] MEDS ORDERED: POTASSIUM CHLORIDE TABS 20 MEQ TABLET.ER (FP) PO ONE ×2 (10:35→11:30)
[2017-03-09] MEDS: D5-1/2NS+40 MEQ KCL - 1,000 ML IV SCH (10:50)
[2017-03-09 11:57] LABS: BASOPHIL 0.1 % (0-2.0); EOSINOPHIL 2.8 % (0-4.5); MCH 32.6 pg (25.7-33.7); MCHC 33.5 g/dl (32.0-36.0); MEAN CELL VOLUME 97.3 fl (80-96); MEAN PLT VOLUME 7.9 fl (7.5-11.1); NEUTROPHILS 54.2 % (42.8-82.8); PLATELET COUNT 266 K/MM3 (134-434); RDW 14.7 % (11.6-15.6); WHITE BLOOD COUNT 6.8 K/mm3 (4.0-10.8)
[2017-03-09] MEDS ORDERED: MAGNESIUM SULF 50% (8.12 MEQ/2 ML-1 GM VIAL) IVPB ONE (12:00)
[2017-03-09] MEDS ORDERED: PT OWN MED DRAWER 7, Y5N ONE ×3 (14:24→23:31)
[2017-03-09 15:39] LABS: ANION GAP 7 (8-16); CALCIUM 8.9 mg/dl (8.4-10.2); CO2 23 mmol/L (22-28); CREATININE 1.5 mg/dl (0.6-1.3); GLUCOSE,RANDOM 182 mg/dl (74-106)
--- NOTE | 2017-03-09 16:03 | PN ---
Progress Note (short form) - Note Progress Note: initial presentation was , she was found on floor and difficulty seeing 86 year oldf emale hsitory of sick sinus syndrome, tia, hypertension. She lives in assisted living facility and had ct scan done and it was normal. Patient have difficulty seeing and it was normal pAST Medical History of dementia, thyroid disease, aplstic anemia, rheumatoid arthritis, hypertension, gerd, tia , had cataract surgery done before Vision has improved. carotid ultrasound could not be done due to uncooperation. she was seen by speech/swallow. MRI of brain cant be done because of pacemaker. She has been agitated and spitting and cursing. was un cooperative to examination. Patient is in atrial fibrillation and was advice to be on anticoagulation by knowledge analyst.it was on hold as she was suspected to be stroke and repeat ct head is unremarkable. Neurological Examination Alert Oriented x 0 speech is normal and today is agitated and cursing and spitting and difficulty to examination no face asymmetry, visual acuity could not be checked today moving all extremity ct head unremarkable done on march [address] head was normal done on march 08 Assessment-- 86 year old female history of Demntia, aplstic anemia, rheumatoid arthritis, hypertension, GERD, TIA and repeat ct scan did not confirm stroke. Since she has symptoms started 5 days ago and no large stroke confirmed on ct head, anticoagulation can be started and advise to hold plavix Plan-- d/c plavix and continue anticoagulation - reconsult optho as stroke was not cofirmed, and if there is other eye causes need to consider for visual loss - continue statin - dvt prophylaxis, speech and pt Thanks for consult Fabian Leigh MD
[2017-03-09] MEDS ORDERED: LORazepam 2 MG/ML SDV VIAL IVPUSH ONE (16:45)
--- NOTE | 2017-03-09 16:56 | PN ---
Progress Note, PHYSICIST NUCLEAR - Note Progress Note: Pt is much more confused, agitated and combative than last week. Seen in [place] at nurses station. Selected Entries 03/08/17 03/08/17 03/08/17 08:06 10:46 13:14 Breakfast 50% 50% Lunch 50% Supper 25% Temperature 03/08/17 03/08/17 03/09/17 14:19 22:00 03:43 Breakfast Lunch 50% Supper Temperature 98.5 F 98.6 F 03/09/17 03/09/17 10:18 14:00 Breakfast 50% Lunch Supper Temperature 98.0 F Reported to be tolelating modified diet. Encourage supplements between meals. Per RD:- supplement with Ensure Pudding BID - d/c Ensure Compact-not taking - trial of Magic cup daily - pt would benefit from Prosource 30 ml BID/ MVI
[2017-03-09] MEDS: APIXABAN 2.5 MG TABLET PO SCH (21:20)
[2017-03-09] MEDS: ATORVASTATIN CA 40 MG TABLET (FP) PO SCH (21:20)
[2017-03-09] MEDS: POTASSIUM CHLORIDE TABS 20 MEQ TABLET.ER (FP) PO SCH (21:20)
[2017-03-09] MEDS: QUEtiapine FUMARATE 25 MG TABLET (FP) PO SCH (21:20)
[2017-03-10] MEDS ORDERED: PT OWN MED DRAWER 7, Y5N ONE ×2 (06:11→17:03)
[2017-03-10] MEDS: TOBRA 0.3%/DEXAMETH 0.1% OPHTHALMIC SUSP 2.5 ML BTL OD SCH ×2 (06:26→15:33)
[2017-03-10 08:00] LABS: BASOPHIL 0.2 % (0-2.0); EOSINOPHIL 1.2 % (0-4.5); MCH 31.5 pg (25.7-33.7); MEAN CELL VOLUME 98.3 fl (80-96); MEAN PLT VOLUME 7.3 fl (7.5-11.1); NEUTROPHILS 63.9 % (42.8-82.8); PLATELET COUNT 207 K/MM3 (134-434); RDW 14.8 % (11.6-15.6)
[2017-03-10 08:21] LABS: ANION GAP 6 (8-16); CALCIUM 8.5 mg/dl (8.4-10.2); CO2 22 mmol/L (22-28); CREATININE 1.1 mg/dl (0.6-1.3); GLUCOSE,RANDOM 133 mg/dl (74-106); MAGNESIUM 1.8 mg/dL (1.8-2.4); PHOSPHOROUS 3.1 mg/dl (2.5-4.6)
[2017-03-10] MEDS: ASPIRIN 81 MG CHEWABLE TABLETS PO SCH (09:00)
[2017-03-10] MEDS: QUEtiapine FUMARATE 25 MG TABLET (FP) PO SCH (09:00)
[2017-03-10] MEDS: METHIMAZOLE 5 MG TABLET (FP) PO SCH (09:00)
[2017-03-10] MEDS: FAMOTIDINE 20 MG TABLET PO SCH (09:00)
[2017-03-10] MEDS: DONEPEZIL HCL 10 MG TABLET (FP) PO SCH (09:00)
[2017-03-10] MEDS: APIXABAN 2.5 MG TABLET PO SCH (09:00)
[2017-03-10] MEDS: POTASSIUM CHLORIDE TABS 20 MEQ TABLET.ER (FP) PO SCH (09:00)
[2017-03-10] MEDS: amLODIPine BESYLATE 5 MG TABLET (FP) PO SCH (09:00)
[2017-03-10] MEDS: CITALOPRAM HYDROBROMIDE 20 MG TABLET (FP) PO SCH (09:00)
[2017-03-10] MEDS: MEMANTINE HCL 10 MG TABLET (FP) PO SCH (09:00)
[2017-03-10] MEDS: METOPROLOL TARTRATE 25 MG TABLET (FP) PO SCH (09:01)
[2017-03-10] MEDS ORDERED: MAGNESIUM SULF 50% (8.12 MEQ/2 ML-1 GM VIAL) IVPB ONE (09:30)
--- NOTE | 2017-03-10 10:29 | PN ---
Progress Note (short form) - Note Progress Note: CC: lauren S: patient alert today and conversational. Responds to questions appropriately. No cp, palps, dizziness, sob. States she is ambulating with walker. Per chart, still with poor po intake. Cr normalized on IVF. Started on eliquis last night. Current Medications Amlodipine Besylate (Norvasc -) 5 mg PO DAILY [facility] Last Admin: 03/10/17 09:00 Dose: 5 mg Apixaban (Eliquis -) 2.5 mg PO BID DIANNE Last Admin: 03/10/17 09:00 Dose: 2.5 mg Aspirin (Asa -) 81 mg PO DAILY [facility] Last Admin: 03/10/17 09:00 Dose: 81 mg Atorvastatin Calcium (Lipitor -) 80 mg PO HS [facility] Last Admin: 03/09/17 21:20 Dose: 80 mg Citalopram Hydrobromide (Celexa -) 20 mg PO DAILY [facility] Last Admin: 03/10/17 09:00 Dose: 20 mg Donepezil HCl (Aricept -) 10 mg PO DAILY [facility] Last Admin: 03/10/17 09:00 Dose: 10 mg Famotidine (Pepcid -) 20 mg PO DAILY [facility] Last Admin: 03/10/17 09:00 Dose: 20 mg Dextrose/Sodium Chloride (D5-1/2ns+40 Meq Kcl -) 1,000 mls @ 100 mls/hr IV ASDIR [facility] Last Admin: 03/09/17 10:50 Dose: 100 mls/hr Memantine (Namenda -) 10 mg PO BID [facility] Last Admin: 03/10/17 09:00 Dose: 10 mg Methimazole (Tapazole -) 5 mg PO DAILY [facility] Last Admin: 03/10/17 09:00 Dose: 5 mg Metoprolol Tartrate (Lopressor -) 25 mg PO BID [facility] Last Admin: 03/10/17 09:01 Dose: 25 mg Potassium Chloride (K-Dur -) 20 meq PO BID [facility] Last Admin: 03/10/17 09:00 Dose: 20 meq Quetiapine Fumarate (Seroquel -) 50 mg PO BID [facility] Last Admin: 03/10/17 09:00 Dose: 50 mg Tobramycin/Dexamethasone (Tobradex Ophthalmic Suspension -) 1 drop OD TID [facility] Last Admin: 03/10/17 06:26 Dose: 1 drop Vital Signs - 24 hr 03/09/17 03/09/17 03/09/17 14:00 19:58 22:00 Temperature 98.0 F 98.6 F Pulse Rate 60 88 Respiratory 17 17 20 Rate Blood Pressure 119/50 100/74 O2 Sat by Pulse 96 96 98 Oximetry (%) 03/10/17 03/10/17 03/10/17 02:00 06:00 08:24 Temperature 98.4 F 98.6 F Pulse Rate 63 95 H Respiratory 20 20 20 Rate Blood Pressure 102/68 105/60 O2 Sat by Pulse 98 Oximetry (%) 03/10/17 09:11 Temperature 98 F Pulse Rate 78 Respiratory 20 Rate Blood Pressure 125/75 O2 Sat by Pulse Oximetry (%) Intake & Output 03/08/17 03/09/17 03/10/17 03/11/17 07:59 07:59 07:59 07:59 Intake Total 8716 322 1972 250 Output Total 1770 250 Balance -40 945 1300 250 NAD, calm, cachectic jvd flat, neck supple ctab, nl effort rrr nl s1, s2 2/6 murmur at sternal border + bs soft nt nd ext without e/c/c + dp/pt alert no jaundice, no diaphoresis no carotid bruits CBC, BMP 03/10/17 07:50 03/10/17 07:00 Microbiology 03/05/17 12:19 Stool Escherichia coli 0157 Culture - Final NO GROWTH OF CAMPYLOBACTER SPECIES OBTAINED NO GROWTH OF YERSINIA SPECIES OBTAINED NO GROWTH OF VIBRIO SPECIES OBTAINED NO GROWTH OF E COLI 0157 OBTAINED 03/05/17 12:19 Stool Salmonella/Shigella Culture - Preliminary 03/05/17 12:19 Stool Non Lactose Fermenting Gnb Laboratory Tests 03/10/17 07:00 Magnesium 1.8 EKG: nsr, early r wave progression. non-specific t wave ab. tele: sr/sinus tachycardia, no further afib cxr: hiatal hernia. no infiltrates/congestion. Assessment/Plan 86 yo correction resident with h/o SSS s/p PPM, TIA, HTN, dementia, aplastic anemia, ra, gerd who presents s/p fall with new vision changes and concern for occiptal stroke . Fall/possible CVA - CVA work up per neuro. - new afib noted, likely etiology. Started on eliquis 03/09 - started on high dose statin here, will need f/u lipid panel as outpatient. LFT's stable. - echo without significant abnormality. New afib -[employer] interrogation reviewed. + PAF. Also noted on tele. - hyperthyroid state (TSH<0) likely contributing, ongoing mgm't per pmd -Also with intermittent sinus tach. Would further titrate lopressor to tid dosing. Can decrease dose of norvasc to make bp room. -started on eliquis 2.5 mg bid 03/09 --> today 03/10 with drop in hgb, con't to monitor. F/u stool cx. - lyte repletion prn. today K elevated, will stop standing K. HTN - controlled/running low on current regimen. meds as above. s/p PPM - interrogated here. CKD - resolved with IVF, still with poor po intake. ongoing mgm't per pmd. Will need to monitor cr on eliquis.
--- NOTE | 2017-03-10 10:52 | EKG ---
Test Reason : Blood Pressure : / mmHG Vent. Rate : 100 BPM Atrial Rate : 098 BPM P-R Int : 000 ms QRS Dur : 098 ms QT Int : 364 ms P-R-T Axes : 000 041 023 degrees QTc Int : 469 ms Likely ATRIAL FIBRILLATION WHEN COMPARED WITH ECG OF 06-MAR-2017 14:05, ATRIAL FIBRILLATION HAS REPLACED SINUS RHYTHM Confirmed by MD DOCKERY MARJORY ([id number]) on 03/10/2017 10:52:03 AM Referred By: DR. CALDERA Confirmed By:LATONIA DOCKERY MD
--- NOTE | 2017-03-10 10:54 | EKG ---
Test Reason : Blood Pressure : / mmHG Vent. Rate : 073 BPM Atrial Rate : 073 BPM P-R Int : 170 ms QRS Dur : 094 ms QT Int : 438 ms P-R-T Axes : 020 029 034 degrees QTc Int : 482 ms NORMAL SINUS RHYTHM NONSPECIFIC T WAVE ABNORMALITY WHEN COMPARED WITH ECG OF 04-MAR-2017 11:55, NO SIGNIFICANT CHANGE WAS FOUND Confirmed by MD DOCKERY MARJORY ([id number]) on 03/10/2017 10:54:38 AM Referred By: MD AGUILAR Confirmed By:LATONIA DOCKERY MD
[2017-03-10] MEDS: D5-1/2NS+40 MEQ KCL - 1,000 ML IV SCH (11:25)
--- NOTE | 2017-03-10 11:45 | DS ---
Physical Exam: SUBJECTIVE: Patient seen and examined, confused appears comfortable OBJECTIVE:This is an 86 year old female with a significant past medical history of SSS s/p PPM, TIA, HTN who presented to the ED from her assisted living facility. As per her friend, she was found on the floor in the bathroom after pulling the emergency cord in her bathroom. Pt is unable to provide any history of her fall or past medical history. History obtained for medical record and friend. Pt reported to the ED staff that she was unable to see, that all she was seeing was shadows. Pt sustained a contusion and abrasion to the back of her head but no other obvious injury located and she denies specific complaints. Upon exam pt does not report any visual changes and seems confused when I asked her about her vision. ER course was notable for: (1) Ct head without acute infarction or bleed (2) CT c spine without acute fracture or subluxation Vital Signs Period Temp Pulse Resp BP Sys/Fowler Pulse Ox Last 24 Hr 98 F-98.6 F 60-95 17-20 100-125/50-75 96-98 PHYSICAL EXAM ENERAL: The patient is awake, alert, and fully oriented, in no acute distress. HEAD: Normal with no signs of trauma. EYES: left eye-->1mm with stagmus, injected sclera Right eye--> 3mm irregular, extraocular movements intact, sclera anicteric, conjunctiva clear. No ptosis. ENT: Ears normal, nares patent, oropharynx clear without exudates, moist mucous membranes. NECK: enlarged thyroid, slight deviation to left, full range of motion, supple. LUNGS: Breath sounds equal, clear to auscultation bilaterally, no wheezes, no crackles, no accessory muscle use. HEART: Regular rate and rhythm, S1, S2 without murmur, rub or gallop. ABDOMEN: Soft, nontender, nondistended, normoactive bowel sounds, no guarding, no rebound, no hepatosplenomegaly, no masses. EXTREMITIES: 2+ pulses, warm, well-perfused, no edema. NEUROLOGICAL: Cranial nerves II through XII grossly intact. Normal speech, ambulated at bedside, unsteady gait, with walker, assistance of one person. PSYCH: Normal mood, normal affect. SKIN: Warm, dry, normal turgor, no rashes or lesions noted LABS Laboratory Results - last 24 hr 03/09/17 03/09/17 03/10/17 08:00 14:30 07:00 WBC 6.8 RBC 3.73 Hgb 12.2 Hct 36.3 MCV 97.3 H MCH 32.6 MCHC 33.5 RDW 14.7 Plt Count 266 MPV 7.9 Neutrophils % 54.2 D Lymphocytes % 26.5 D Monocytes % 16.4 H Eosinophils % 2.8 D Basophils % 0.1 Sodium 142 143 Potassium 3.7 4.9 D Chloride 112 H 115 H Carbon Dioxide 23 22 Anion Gap 7 L 6 L BUN 46 H 27 H D Creatinine 1.5 H 1.1 D Random Glucose 182 H 133 H D Calcium 8.9 8.5 Phosphorus 3.1 D Magnesium 1.8 03/10/17 07:50 WBC 8.0 RBC 3.19 L Hgb 10.1 L D Hct 31.4 L MCV 98.3 H MCH 31.5 MCHC 32.0 RDW 14.8 Plt Count 207 D MPV 7.3 L Neutrophils % 63.9 Lymphocytes % 18.2 D Monocytes % 16.5 H Eosinophils % 1.2 Basophils % 0.2 Sodium Potassium Chloride Carbon Dioxide Anion Gap BUN Creatinine Random Glucose Calcium Phosphorus Magnesium Microbiology 03/05/17 13:30 Blood - Peripheral Venous Blood Culture - Preliminary NO GROWTH OBTAINED AFTER 96 HOURS, INCUBATION TO CONTINUE FOR 1 DAYS. 03/05/17 13:30 Blood - Peripheral Venous Blood Culture - Preliminary NO GROWTH OBTAINED AFTER 96 HOURS, INCUBATION TO CONTINUE FOR 1 DAYS. 03/05/17 12:19 Stool Salmonella/Shigella Culture - Preliminary Non Lactose Fermenting Gnb 03/05/17 12:19 Stool Campylobacter Culture - Final NO GROWTH OF CAMPYLOBACTER SPECIES OBTAINED 03/05/17 12:19 Stool Yersinia Culture - Final NO GROWTH OF YERSINIA SPECIES OBTAINED 03/05/17 12:19 Stool Vibrio Culture - Final NO GROWTH OF VIBRIO SPECIES OBTAINED 03/05/17 12:19 Stool Escherichia coli 0157 Culture - Final NO GROWTH OF E COLI 0157 OBTAINED 03/05/17 13:45 Urine - Urine Doe Urine Culture - Final NO GROWTH OBTAINED 03/05/17 12:22 Stool Clostridium difficile Antigen (JOHNNA) - Final 03/05/17 12:22 Stool Clostridium difficile Toxin Assay - Final IMAGING - CT of head 03/07: central atropy, ischemic matter - echo 03/06: lv wnl, moderate tr - thyroid ultrasound: large complex left lobe mass stable as per radiologist, Dr Jimenez [facility] COURSE: 1) Unwitnessed fall, ? syncope, with visual changes,r/o CVA-->discussed with simulation technician (Miguel Angel) unable to perform MRI with PPM, although PPM is compatible , patient was placed on high dose statin. She was evaluated by personal hotel front desk clerk (Robin), found to have acute decrease in OU vision without ocular changes (irregular left pupil, and miotic, deviated right pupil are baseline). patient was placed on tobramycin/dextamasone for conjunctivitis. 2) new onset afib, ppm interrograted, runs of afib noted, 03/08 paroxysmal afib noted on cardiac monitoring, yojana vasc score 4, started eliquis 2.5mg BID, cardiology (Dr Sidhu) consulted and followed. patient has a known history of hypertension, b/p at goal, continued amlodipine 3) r/o cva, unable to obtain MRI, can not obtain cta of brain due to sandro, continued eliquis and high dose statin. Dr Morelos neurology consulted and followed, repeat ct scan no acute infarct noted. patient was placed on neuro checks q6h. 4) pmh of Alzheimer dementia, continued aricept, namenda, and seroquel 5) acute kidney injury, resolved back to baseline, secondary to hypovolemia, creatine improved after IV hydration. 6) thyroid disease/goiter, tsh noted to be low, contributing factor to afib, t3 is wnl, pending t4, continue methimazole f/e/n SPECIAL ASSEMBLIES SUPERVISOR completed, rec dysphagia pureed diet , liquid to nectar thick consistency -Monitor pulm status.MBS if increasing congestion noted, MBS as out pt. if pt tolerates modified diet. hypokalemia Date of Admission:03/05/17 Date of Discharge: 03/10/17 Minutes to complete discharge: 45 Discharge Summary Reason For Visit: DECREASED VISUAL ACUITY/SYNCOPE Current Active Problems Decreased visual acuity (Acute) Syncope (Acute) - Home Medications Comprehensive Discharge Medication List: Ambulatory Orders Amlodipine Besylate [Norvasc -] 5 mg PO DAILY 03/04/17 Aspirin [ASA -] 81 mg PO ASDIR 03/04/17 Citalopram Hydrobromide [Citalopram HBr] 20 mg PO DAILY 03/04/17 Donepezil HCl [Aricept] 10 mg PO DAILY 03/04/17 Famotidine [Pepcid] 20 mg PO DAILY 03/04/17 Ferrous Sulfate [Feosol] 325 mg PO DAILY 03/04/17 Memantine HCl [Namenda -] 10 mg PO BID 03/04/17 Methimazole [Tapazole] 5 mg PO DAILY 03/04/17 Metoprolol Succinate [Toprol Xl -] 25 mg PO DAILY 03/04/17 Multivitamins [Tab-A-Vit -] 1 tab PO DAILY 03/04/17 Quetiapine Fumarate [Seroquel -] 50 mg PO BID 03/04/17 Turmeric Root Extract [Turmeric] 500 mg PO BID 03/04/17 This patient is new to me today: No Emergency Visit: Yes ED Registration Date: 03/05/17 Care time: The patient presented to the Emergency Department on the above date and was hospitalized for further evaluation of their emergent condition. Critical Care patient: No - Discharge Referral Referred to [facility] Yes Physician Referral: Von Flores MD (Int Med)
[2017-03-10] MEDS ORDERED: METOPROLOL TARTRATE 25 MG TABLET (FP) PO SCH (14:00)
[2017-03-10 14:05] VITALS: BP 100/56; PULSE 74; TEMP 97.9
[2017-03-10] MEDS ORDERED: AMINO ACIDS/PROTEIN HYDROLYS 30 ML LIQUID.PKT PO SCH (17:30)
[2017-03-11] MEDS ORDERED: amLODIPine BESYLATE 2.5 MG TABLET (FP) PO SCH (10:00)
[2017-03-11] MEDS ORDERED: amLODIPine BESYLATE 5 MG TABLET (FP) PO SCH (10:00)
== END 2017-03-10 17:07 | DRG 65 ==
LOC: FER 11:39 → INTOOBSV 14:03 → OBSVTOIN 14:03 → FM/S 14:03 → UNDOADMOB 14:03 → OBSVTOIN 03-05 15:30 → FM/S 03-05 15:30
PROVIDERS: ADMIT Internal Medicine; ATTEND Nurse Practitioner Family
DX: I63.8 Other cerebral infarction (principal); F02.81 Dementia in other diseases classified elsewhere, unspecified severity, with behavioral disturbance; N17.9 Acute kidney failure, unspecified; E87.0 Hyperosmolality and hypernatremia; I47.1 Supraventricular tachycardia; G30.9 Alzheimer's disease, unspecified; R55 Syncope and collapse; Z95.0 Presence of cardiac pacemaker; I12.9 Hypertensive chronic kidney disease with stage 1 through stage 4 chronic kidney disease, or unspecified chronic kidney disease; N18.9 Chronic kidney disease, unspecified; K21.9 Gastro-esophageal reflux disease without esophagitis; E87.6 Hypokalemia; R19.7 Diarrhea, unspecified; H10.9 Unspecified conjunctivitis; E83.42 Hypomagnesemia; I48.0 Paroxysmal atrial fibrillation
CPT/HCPCS: 36415; 70450-TC; 71010-TC; 72125-TC; 76536-TC; 80048; 80053; 81003; 81015; 82550; 82553; 83735; 84100; 84436; 84443; 84479; 84484; 85025; 85610; 87040; 87045; 87046; 87086; 87186; 87324; 87449; 93005; 93306-TC; 97116-GP; 97162-GP; 99284-25; J1644

== ENCOUNTER 2017-03-15 00:25 | Observation (INO) | payer OTHER ==
[2017-03-15 00:33] VITALS: BMI 21.9
--- NOTE | 2017-03-15 01:25 | PDOC ---
History of Present Illness - General History Source: Patient Exam Limitations: Dementia - History of Present Illness Initial Comments: 03/15/17 02:16 The patient is a 86 year old female, with a significant past medical history of alzheimers dementia, thyroid disease, rheumatoid arthritis, GERD, hypertension , TIA, sick sinus syndrome with pacemaker, who presents to the emergency department from living facility for evaluation of decreased PO intake per the [facility] staff. EMS reports the [facility] staff stated that the patient was seen at [facility] approx. 5 days ago for a fall, however, since then has had decreased PO intake and decreased urination. The patient is alert but confused and unable to provide additional information. Primary Care Physician: Dr. Arnol Jordan <Bobby Love - Last Filed: 03/15/17 05:05> - General History Source: Residential Records, Old Records Exam Limitations: Clinical Condition <Van Conti - Last Filed: 03/15/17 06:55> - General Chief Complaint: Injury Stated Complaint: FALL Time Seen by Provider: 03/15/17 00:40 Past History <Bobby Love - Last Filed: 03/15/17 05:05> - Past Medical History Anemia: Yes (APLASTIC) Asthma: No Cancer: Yes (LEFT BREAST CA, SKIN CA) Cardiac Disorders: No CVA: Yes COPD: No CHF: No Dementia: Yes (MILD) Diabetes: No GI Disorders: Yes Disorders: No HTN: Yes Hypercholesterolemia: No Liver Disease: No Seizures: No Thyroid Disease: No - Surgical History Abdominal Surgery: Yes Appendectomy: No Cardiac Surgery: Yes (PACEMAKER) Cholecystectomy: Yes Lung Surgery: No Neurologic Surgery: No Orthopedic Surgery: Yes - Immunization History Td Vaccination: (unknown) - Suicide/Smoking/Psychosocial Hx Smoking Status: No Smoking History: Unknown if ever smoked Have you smoked in the past 12 months: No Number of Cigarettes Smoked Daily: 0 Information on smoking cessation initiated: No Hx Alcohol Use: No Drug/Substance Use Hx: No Substance Use Type: None Hx Substance Use Treatment: No <Van Conti - Last Filed: 03/15/17 06:55> - Past Medical History Allergies/Adverse Reactions: Allergies Allergy/AdvReac Type Severity Reaction Status Date / Time Penicillins Allergy Verified 03/15/17 00:28 Sulfa (Sulfonamide Allergy Verified 03/15/17 00:28 Antibiotics) STRAWBERRIES Allergy Uncoded 03/15/17 00:28 Home Medications: Ambulatory Orders Amlodipine Besylate [Norvasc -] 5 mg PO DAILY 03/04/17 Aspirin [ASA -] 81 mg PO ASDIR 03/04/17 Citalopram Hydrobromide [Citalopram HBr] 20 mg PO DAILY 03/04/17 Donepezil HCl [Aricept] 10 mg PO DAILY 03/04/17 Famotidine [Pepcid] 20 mg PO DAILY 03/04/17 Ferrous Sulfate [Feosol] 325 mg PO DAILY 03/04/17 Memantine HCl [Namenda -] 10 mg PO BID 03/04/17 Methimazole [Tapazole] 5 mg PO DAILY 03/04/17 Multivitamins [Multivit ([facility] Formulary)] 1 tab PO DAILY 03/04/17 Quetiapine Fumarate [Seroquel -] 50 mg PO BID 03/04/17 Turmeric Root Extract [Turmeric] 500 mg PO BID 03/04/17 Amino Acids/Protein Hydrolys [Prosource No Carb Liquid Pkt] 30 ml PO BID@0800, 1730 packet 03/10/17 Apixaban [Eliquis -] 2.5 mg PO BID tablet 03/10/17 Atorvastatin Ca [Lipitor] 80 mg PO HS tablet 03/10/17 Metoprolol Tartrate [Lopressor -] 25 mg PO TID tablet 03/10/17 Quetiapine Fumarate [Seroquel -] 50 mg PO BID tablet 03/10/17 Tobramycin Sulf/Dexamethasone [Tobradex Ophthalmic Suspension -] 1 drop OD TID ml 03/10/17 Review of Systems - Review of Systems Able to Perform ROS?: Yes Comments:: 03/15/17 02:16 GENERAL/CONSTITUTIONAL: No fever or chills. No weakness. HEAD, EYES, EARS, NOSE AND THROAT: No change in vision. No ear pain or discharge. No sore throat. CARDIOVASCULAR: No chest pain or shortness of breath. RESPIRATORY: No cough, wheezing, or hemoptysis. GASTROINTESTINAL: No nausea, vomiting, diarrhea or constipation. GENITOURINARY: No dysuria, frequency, or change in urination. MUSCULOSKELETAL: No joint or muscle swelling or pain. No neck or back pain. SKIN: No rash NEUROLOGIC: No headache, vertigo, loss of consciousness, or change in strength/ sensation. ENDOCRINE: No increased thirst. No abnormal weight change. HEMATOLOGIC/LYMPHATIC: No anemia, easy bleeding, or history of blood clots. ALLERGIC/IMMUNOLOGIC: No hives or skin allergy. <Bobby Love - Last Filed: 03/15/17 05:05> *Physical Exam - Vital Signs Last Vital Signs Temp Pulse Resp BP Pulse Ox 97.5 F L 87 20 118/59 96 03/15/17 00:28 03/15/17 00:28 03/15/17 00:28 03/15/17 00:28 03/15/17 00:28 - Physical Exam Comments: 03/15/17 05:05 GENERAL: Alert and Orientated x 1.5, Pt. believes she is at [facility] and the wrong year. HEAD: No signs of trauma EYES: PERRLA, EOMI, sclera anicteric, conjunctiva clear ENT: +Dry mucus membranes. Auricles normal inspection, hearing grossly normal, nares patent, oropharynx clear without exudates. NECK: Normal ROM, supple, no lymphadenopathy, JVD, or masses LUNGS: Breath sounds equal, clear to auscultation bilaterally. No wheezes, and no crackles HEART: Regular rate and rhythm, normal S1 and S2, no murmurs, rubs or gallops ABDOMEN: Soft, nontender, normoactive bowel sounds. No guarding, no rebound. No masses EXTREMITIES: Normal range of motion, no edema. No clubbing or cyanosis. No cords, erythema, or tenderness NEUROLOGICAL: Cranial nerves II through XII grossly intact. Normal speech, normal gait SKIN: Warm, Dry, normal turgor, no rashes or lesions noted. <Bobby Love - Last Filed: 03/15/17 05:05> - Vital Signs Last Vital Signs Temp Pulse Resp BP Pulse Ox 97.5 F L 87 20 118/59 96 03/15/17 00:28 03/15/17 00:28 03/15/17 00:28 03/15/17 00:28 03/15/17 00:28 <Van Conti - Last Filed: 03/15/17 06:55> Heart Score/ECG Review #1 ECG reviewed & interpreted by me at: 01:40 03/15/17 03:51 NSR 84, no std/maureen, normal axis, normal intervals, QTC 446 msec. With occasional PVC. <Van Conti - Last Filed: 03/15/17 06:55> ED Treatment Course - LABORATORY CBC & Chemistry Diagram: 03/15/17 01:46 03/15/17 01:46 - ADDITIONAL ORDERS Additional order review: Laboratory Results 03/15/17 01:46 PT with INR 14.50 H INR 1.28 H PTT (Actin FS) 34.6 H 03/15/17 01:46 RBC 3.24 L MCV 98.1 H MCHC 33.6 RDW 15.1 MPV 7.2 L Neutrophils % 58.0 D Lymphocytes % 23.8 D Monocytes % 15.6 H Eosinophils % 2.3 Basophils % 0.3 - RADIOLOGY Radiograph Interpretation: 03/15/17 04:17 EXAM: CT HEAD without contrast HISTORY:Confusion COMPARISON: None. FINDINGS:The ventricular system is midline and nondilated. Involutional changes are noted in a few scattered sulcal calcifications may be due to old infection.. There is no bleed, mass, extra-axial fluid collection or mass effect. No skull fracture. Small right frontal extracalvarial density may be an exostosis. The visualized paranasal sinuses and mastoid air cells are clear. IMPRESSION: No evidence of acute pathology. Reported by Saul Zuniga MD <Bobby Love - Last Filed: 03/15/17 05:05> - LABORATORY CBC & Chemistry Diagram: 03/15/17 01:46 03/15/17 01:46 - RADIOLOGY Radiology Studies Ordered: Category Date Time Status HEAD CT WITHOUT CONTRAST [CT] Stat CT Scan 03/15/17 01:22 Ordered CHEST X-RAY PORTABLE* [RAD] Stat Radiology 03/15/17 01:22 Ordered <Van Conti - Last Filed: 03/15/17 06:55> Medical Decision Making - Medical Decision Making 03/15/17 03:20 A portion of this note was documented by scribe services under my direction. I have reviewed the details of the note, within reason, and agree with the documentation with the following case summary and management plan written by me. Patient treated in the ED. Nursing notes are reviewed and incorporated into the medical decision-making. Vital signs reviewed. Peripheral IV access obtained by the nurse, laboratory studies are drawn and sent, reviewed and interpreted by myself. Vital Signs Temp Pulse Resp BP Pulse Ox 97.5 F L 87 20 118/59 96 03/15/17 00:28 03/15/17 00:28 03/15/17 00:28 03/15/17 00:28 03/15/17 00:28 86-year-old female with significant past medical history of sick sinus syndrome status post pacemaker placement, TIA, hypertension who presents to the ED for increasing confusion and altered mental status. The patient was recently discharged 5 days ago for a reported syncopal event. The patient was admitted and worked up for neurological workup with them should no acute findings. At the nursing facility, the patient has had decreased intake, decreased urine output and endorsing suicidal ideation according to the [facility]. The patient here appears demented and potentially confused. The patient is AAO 1.5 , she knows that she is at a hospital but thinks it is [facility]. She does not know what year it is. Given that she was really found to be in atrial fibrillation, we'll check head CT for rule out intracranial hemorrhage, urine for rule out urine tract infection and obtain labs to look for metabolic disarray. However, the patient may be considered for admission to the hospital for further evaluation. 03/15/17 06:53 CBC, BMP 03/15/17 01:46 03/15/17 01:46 CMP Sodium 144 mmol/L (136-145) 03/15/17 01:46 Potassium 4.1 mmol/L (3.5-5.1) 03/15/17 01:46 Chloride 111 mmol/L (98-107) H 03/15/17 01:46 Carbon Dioxide 23 mmol/L (21-32) 03/15/17 01:46 Anion Gap 10 (8-16) 03/15/17 01:46 BUN 21 mg/dL (7-18) H D 03/15/17 01:46 Creatinine 0.8 mg/dL (0.55-1.02) D 03/15/17 01:46 Creat Clearance w eGFR > 60 (>60) 03/15/17 01:46 Random Glucose 100 mg/dL (74-106) D 03/15/17 01:46 Calcium 8.1 mg/dL (8.5-10.1) L 03/15/17 01:46 Phosphorus 4.1 mg/dL (2.5-4.9) 03/15/17 01:46 Magnesium 2.2 mg/dL (1.8-2.4) D 03/15/17 01:46 Total Bilirubin 0.4 mg/dL (0.2-1.0) 03/15/17 01:46 AST 30 U/L (15-37) D 03/15/17 01:46 ALT 32 U/L (12-78) 03/15/17 01:46 Alkaline Phosphatase 94 U/L (45-117) 03/15/17 01:46 Creatine Kinase 328 IU/L (26-192) H 03/15/17 01:46 Troponin I 0.02 ng/ml (0.00-0.05) 03/15/17 01:46 Total Protein 6.0 g/dl (6.4-8.2) L 03/15/17 01:46 Albumin 2.9 g/dl (3.4-5.0) L 03/15/17 01:46 Urine Test Results Urine Color Yellow 03/15/17 02:55 Urine Appearance Clear 03/15/17 02:55 Urine pH 5.0 (5.0-8.0) 03/15/17 02:55 Urine Protein Negative (NEGATIVE) 03/15/17 02:55 Urine Glucose (UA) Negative (NEGATIVE) 03/15/17 02:55 Urine Ketones Negative (NEGATIVE) 03/15/17 02:55 Urine Blood 1+ (NEGATIVE) H 03/15/17 02:55 Urine Nitrite Positive (NEGATIVE) 03/15/17 02:55 Urine Bilirubin Negative (NEGATIVE) 03/15/17 02:55 Urine RBC None /hpf (0-3) 03/15/17 02:55 Urine WBC 3 /hpf (3-5) 03/15/17 02:55 Ur Epithelial Cells Rare /hpf (FEW) 03/15/17 02:55 Urine Bacteria Many /hpf (NONE SEEN) 03/15/17 02:55 03/15/17 06:54 Pt noted to have positive nitrates in urine. Pt is allergic to penicillin. Given confusion, AMS, will admit the patient to the hospital IV levaquin ordered. Case discussed with the institute of living Case admitted to med/surg admission. Case discussed in detail with admitting physician including history, physical exam and ancillary studies. Admitting physician has assumed care for the patient, will follow all pending diagnostics and will complete the evaluation and treatment. <Van Conti - Last Filed: 03/15/17 06:55> *DC/Admit/Observation/Transfer - Attestations Scribe Attestion: 03/15/17 02:17 Documentation prepared by Bobby Love, acting as medical billing manager for Van Conti MD. <Bobby Love - Last Filed: 03/15/17 05:05> - Discharge Dispostion Admit: Yes <Van Conti - Last Filed: 03/15/17 06:55> Diagnosis at time of Disposition: Confusion Urinary tract infection Qualifiers: Urinary tract infection type: site unspecified Hematuria presence: without hematuria Qualified Code(s): N39.0 - Urinary tract infection, site not specified ; N39.0 - Urinary tract infection, site not specified - Discharge Dispostion Condition at time of disposition: Stable - Referrals Referrals: Arnol Jordan MD [Primary Care Provider] -
[2017-03-15 01:55] LABS: BASOPHIL 0.3 % (0-2.0); EOSINOPHIL 2.3 % (0-4.5); MCH 32.9 pg (25.7-33.7); MCHC 33.6 g/dl (32.0-36.0); MEAN CELL VOLUME 98.1 fl (80-96); MEAN PLT VOLUME 7.2 fl (7.5-11.1); PLATELET COUNT 182 K/MM3 (134-434); RDW 15.1 % (11.6-15.6); WHITE BLOOD COUNT 6.4 K/mm3 (4.0-10.0)
[2017-03-15 02:06] LABS: INR 1.28 (0.82-1.09); PROTHROMBIN TIME (PATIENT) 14.5 SEC (9.98-11.88)
[2017-03-15 02:08] LABS: ACTIVATED PTT 34.6 SECONDS (26.9-34.4)
[2017-03-15 02:46] LABS: ALBUMIN 2.9 g/dl (3.4-5.0); ANION GAP 10 (8-16); CALCIUM 8.1 mg/dL (8.5-10.1); CO2 23 mmol/L (21-32); CREATININE 0.8 mg/dL (0.55-1.02); GLUCOSE,RANDOM 100 mg/dL (74-106); MAGNESIUM 2.2 mg/dL (1.8-2.4); PHOSPHOROUS 4.1 mg/dL (2.5-4.9); SGOT/AST 30 U/L (15-37); SGPT/ALT 32 U/L (12-78)
[2017-03-15 02:50] LABS: ALK PHOS 94 U/L (45-117); BILIRUBIN,TOTAL 0.4 mg/dL (0.2-1.0); CPK 328 IU/L (26-192); TROPONIN I 0.02 ng/ml (0.00-0.05)
[2017-03-15 03:05] LABS: URINE APPEARANCE CLEAR; URINE BILIRUBIN NEGATIVE (NEGATIVE); URINE BLOOD 1+ (NEGATIVE); URINE COLOR YELLOW; URINE GLUCOSE (UA) NEGATIVE (NEGATIVE); URINE KETONE NEGATIVE (NEGATIVE); URINE NITRITE POSITIVE (NEGATIVE); URINE PROTEIN NEGATIVE (NEGATIVE); URINE UROBILINOGEN NEGATIVE mg/dL (0.2-1.0)
[2017-03-15 03:12] LABS: URINE BACTERIA MANY /hpf (NONE SEEN); URINE WBC 3 /hpf (3-5)
[2017-03-15] MEDS ORDERED: SODIUM CHLORIDE 500 ML IV STA (03:16)
[2017-03-15] MEDS ORDERED: KETOROLAC TROMETHAMINE 15 MG/ML VIAL IVPUSH ONE (05:40)
[2017-03-15] MEDS ORDERED: KETOROLAC TROMETHAMINE 15 MG/ML VIAL ONE (05:41)
[2017-03-15] MEDS ORDERED: LEVOFLOXACIN 500 MG IVPB 100 ML IVPB ONE ×2 (06:54→06:56)
--- NOTE | 2017-03-15 09:08 | EKG ---
Test Reason : Blood Pressure : / mmHG Vent. Rate : 084 BPM Atrial Rate : 084 BPM P-R Int : 182 ms QRS Dur : 090 ms QT Int : 378 ms P-R-T Axes : 101 052 063 degrees QTc Int : 446 ms POOR DATA QUALITY, INTERPRETATION MAY BE ADVERSELY AFFECTED SINUS RHYTHM WITH OCCASIONAL ventricular-paced complexes AND PREMATURE ATRIAL COMPLEXES ABNORMAL ECG WHEN COMPARED WITH ECG OF 08-MAR-2017 04:14, ELECTRONIC VENTRICULAR PACEMAKER HAS REPLACED ATRIAL FIBRILLATION Confirmed by CONSTANTINO ADAMS, FRANK ([id number]) on 03/15/2017 9:08:19 AM Referred By: Confirmed By:FRANK MEEKS MD
--- NOTE | 2017-03-15 12:22 | CON.PSY ---
Psychiatry Consult Chief Complaint: Asked to see this patient, an 86 year old female for suicidal ideation Symptoms: reports: Irritability, Anxiety, Restlessness - Allergies Allergies: Allergies Allergy/AdvReac Type Severity Reaction Status Date / Time Penicillins Allergy Verified 03/15/17 00:28 Sulfa (Sulfonamide Allergy Verified 03/15/17 00:28 Antibiotics) STRAWBERRIES Allergy Uncoded 03/15/17 00:28 - Current Living Status Usual Living Arrangement: Residential - Current Mental Status Evaluation Appearance: Disheveled - Affect Affect: Labile Appropriateness: Not Appropriate - Mood Mood: Anxious, Irritable - Speech/Language Expressive: Delayed (Hard of hearing) Receptive: Delayed Receptive Comprehension - Psychomotor Activity Psychomotor Activity: Agitated - Thought Process Thought Process: Other (confused) - Thought Content Hallucinations: Absent Delusions: Absent - Self Perception Self Perception: No Impairment - Cognition Attention: Diminished Orientation: Person Memory, Immediate Recall: Impaired Memory, Remote: Impaired - Concentration Serial Sevens Intact: No Simple Calculations Intact: No - Insight Insight: Impaired - Suicidal Ideation Suicidal Ideation: No - Homicidal Ideation Homicidal Ideation: No Assessment/Plan Patient with a hx of underlying dementia and now has an infectious process/UTI Rec restart serquel 50 mgs bid, restart celexa 20 mgs daily and aricept 10 mgs daily
[2017-03-15] MEDS ORDERED: QUEtiapine FUMARATE 25 MG TABLET (FP) ONE ×2 (14:27→21:06)
[2017-03-15] MEDS: CITALOPRAM HYDROBROMIDE 20 MG TABLET (FP) PO SCH (14:34)
[2017-03-15] MEDS: amLODIPine BESYLATE 5 MG TABLET (FP) PO SCH (14:34)
[2017-03-15] MEDS: APIXABAN 2.5 MG TABLET PO SCH ×2 (14:35→21:58)
[2017-03-15] MEDS: MEMANTINE HCL 10 MG TABLET (FP) PO SCH ×2 (14:35→21:58)
[2017-03-15] MEDS: METOPROLOL TARTRATE 25 MG TABLET (FP) PO SCH ×2 (14:35→21:57)
[2017-03-15] MEDS: RANITIDINE HCL 150 MG TABLET (FP) PO SCH (14:35)
[2017-03-15] MEDS: QUEtiapine FUMARATE 50 MG TABLET PO SCH ×2 (14:35→21:58)
[2017-03-15] MEDS: DONEPEZIL HCL 10 MG TABLET (FP) PO SCH (14:35)
[2017-03-15] MEDS: ASPIRIN 81 MG CHEWABLE TABLETS PO SCH (14:50)
[2017-03-15 15:15] LABS: URINE LEUK ESTERASE Negative (NEGATIVE)
--- NOTE | 2017-03-15 16:55 | HP ---
CHIEF COMPLAINT: None reported by patient HISTORY OF PRESENT ILLNESS: 86 year-old female with a PMH significant for HTN, SSS s/p PPM, h/o TIA, dementia with behavior disturbance, thyroid disease, RA, aplastic anemia, and GERD. Recently hospitalized at [place] 03/05-->03/10/17 following a fall at her assisted living facility. During that admission she was first diagnosed with atrial fibrillation and started on Eliquis. She was discharged to [facility]. She was sent to the ED by Ana in the [employer] hours because she was refusing to eat, had decreased urine output, and was agitated and stating she wanted to . ER course was notable for: (1) CXR unremarkable (2) CT head: no acute process Recent Travel: No PAST MEDICAL HISTORY: Hypertension SSS PAST SURGICAL HISTORY: PPM Social History: Smoking: no Alcohol: no Drugs: no Family History: Allergies Penicillins Allergy (Verified 03/15/17 00:28) Sulfa (Sulfonamide Antibiotics) Allergy (Verified 03/15/17 00:28) STRAWBERRIES Allergy (Uncoded 03/15/17 00:28) HOME MEDICATIONS: Home Medications Medication Instructions Recorded Amlodipine Besylate [Norvasc -] 5 mg PO DAILY 03/04/17 Aspirin [ASA -] 81 mg PO ASDIR 03/04/17 Citalopram Hydrobromide 20 mg PO DAILY 03/04/17 [Citalopram HBr] Donepezil HCl [Aricept] 10 mg PO DAILY 03/04/17 Famotidine [Pepcid] 20 mg PO DAILY 03/04/17 Ferrous Sulfate [Feosol] 325 mg PO DAILY 03/04/17 Memantine HCl [Namenda -] 10 mg PO BID 03/04/17 Methimazole [Tapazole] 5 mg PO DAILY 03/04/17 Multivitamins [Multivit ([facility] 1 tab PO DAILY 03/04/17 Formulary)] Quetiapine Fumarate [Seroquel -] 50 mg PO TID 03/04/17 Turmeric Root Extract [Turmeric] 500 mg PO BID 03/04/17 Amino Acids/Protein Hydrolys 30 ml PO BID@0800,1730 packet 03/10/17 [Prosource No Carb Liquid Pkt] Apixaban [Eliquis -] 2.5 mg PO BID tablet 03/10/17 Atorvastatin Ca [Lipitor] 80 mg PO HS tablet 03/10/17 Metoprolol Tartrate [Lopressor -] 25 mg PO TID tablet 03/10/17 Tobramycin Sulf/Dexamethasone 1 drop OD TID ml 03/10/17 [Tobradex Ophthalmic Suspension -] REVIEW OF SYSTEMS Unable to obtain from patient due to dementia PHYSICAL EXAMINATION Vital Signs - 24 hr 03/15/17 03/15/17 03/15/17 10:00 13:30 13:37 Temperature 97.7 F 98.2 F 97.6 F Pulse Rate 88 106 H Respiratory 18 18 18 Rate Blood Pressure 131/60 151/83 GENERAL/NEURO: Sleeping but arousable. A&O x 1. Calm. Speech is clearly articulated. No acute distress. HEAD: Normal with no signs of trauma. EYES: Left pupil irregular; right pupil 1mm and deviated to the left EARS, NOSE, THROAT: Thrush on tongue. LUNGS: Breath sounds equal, clear to auscultation bilaterally. No wheezes, and no crackles. No accessory muscle use. HEART: Regular rate and rhythm, normal S1 and S2 without murmur, rub or gallop. ABDOMEN: Soft, nontender, not distended, normoactive bowel sounds, no guarding, no rebound, no masses. UPPER EXTREMITIES: 2+ pulses, warm, well-perfused. No cyanosis. No clubbing. No peripheral edema. LOWER EXTREMITIES: 2+ pulses, warm, well-perfused. No calf tenderness. No peripheral edema. ASSESSMENT/PLAN 86 year-old female with a PMH significant for HTN, SSS s/p PPM, afib on Eliquis (recently diagnosed), h/o TIA, dementia with behavior disturbance, thyroid disease, RA, aplastic anemia, and GERD. Dementia with behavior disturbance --this patient's behavior on this admission is consistent with her baseline; she has periods of calm interspersed with periods of agitation --seen and evaluated by psych who recommended continuation of her existing psychotropic medication regimen: citalopram, seroquel, memantine, donepezil Hypertension --BP acceptable for patient's age --continue metoprolol, amlodipine SSS s/p PPM --PPM interrogated earlier this month Atrial fibrillation --rate controlled in 80's, continue metoprolol --continue Eliquis Thyroid disease, goiter --03/06/17 thyroid: large complex left lobe mass stable since 12/2015 --TSH undetectable on 03/08 --f/u TSH, free T3, free T4 --continue methimazole --outpatient followup Thrush --Nystatin swish and swallow; swab inside of mouth if patient cannot follow direction Pyuria --3 WBCs, +nitrites, culture pending --afebrile, no leukocytosis --no abx for now --voiding freely F/E/N Fluids: PO intake adequate Electrolytes: replete as indicated Nutrition: dysphagia puree, nectar thick, Ensure pudding BID, Magic cup daily , Prosource BID, MVI DVT prophylaxis: on Eliqu Dispo: patient has been seen by psych, no change in medications ordered, behavior is at baseline; she is voiding freely and renal function is stable; will monitor food intake; discharge back to [facility] tomorrow. Full code. Visit type - Emergency Visit Emergency Visit: Yes ED Registration Date: 03/15/17 Care time: The patient presented to the Emergency Department on the above date and was hospitalized for further evaluation of their emergent condition. - New Patient This patient is new to me today: Yes Date on this admission: 03/15/17 - Critical Care Critical Care patient: No
[2017-03-15] MEDS: TOBRA 0.3%/DEXAMETH 0.1% OPHTHALMIC SUSP 2.5 ML BTL OD SCH ×2 (17:35→21:59)
[2017-03-15] MEDS: AMINO ACIDS/PROTEIN HYDROLYS 30 ML LIQUID.PKT PO SCH (20:03)
[2017-03-15] MEDS: NYSTATIN 500,000 UNITS/5 ML SUSPENSION PO SCH (21:59)
[2017-03-15] MEDS ORDERED: ATORVASTATIN CA 40 MG TABLET (FP) PO SCH (22:00)
[2017-03-16] MEDS ORDERED: LORazepam 2 MG/ML SDV VIAL IVPUSH ONE (06:00)
[2017-03-16] MEDS ORDERED: QUEtiapine FUMARATE 25 MG TABLET (FP) ONE ×2 (06:10→13:50)
[2017-03-16] MEDS: NYSTATIN 500,000 UNITS/5 ML SUSPENSION PO SCH ×2 (06:36→13:53)
[2017-03-16] MEDS: METOPROLOL TARTRATE 25 MG TABLET (FP) PO SCH ×2 (06:36→13:52)
[2017-03-16] MEDS: QUEtiapine FUMARATE 50 MG TABLET PO SCH ×2 (06:36→13:53)
[2017-03-16] MEDS: TOBRA 0.3%/DEXAMETH 0.1% OPHTHALMIC SUSP 2.5 ML BTL OD SCH ×2 (06:37→13:54)
[2017-03-16] MEDS ORDERED: PT OWN MED DRAWER 7, Y5N ONE ×2 (08:12→13:51)
[2017-03-16 08:52] LABS: FREE T4 5.92 ng/dl (0.76-1.46); THYROID STIMULATING HORMONE < 0.01 uIU/ml (0.358-3.74)
[2017-03-16] MEDS ORDERED: METHIMAZOLE 5 MG TABLET (FP) PO SCH (10:00)
[2017-03-16] MEDS: APIXABAN 2.5 MG TABLET PO SCH (10:10)
[2017-03-16] MEDS: CITALOPRAM HYDROBROMIDE 20 MG TABLET (FP) PO SCH (10:10)
[2017-03-16] MEDS: MEMANTINE HCL 10 MG TABLET (FP) PO SCH (10:10)
[2017-03-16] MEDS: DONEPEZIL HCL 10 MG TABLET (FP) PO SCH (10:10)
[2017-03-16] MEDS: RANITIDINE HCL 150 MG TABLET (FP) PO SCH (10:10)
[2017-03-16] MEDS: amLODIPine BESYLATE 5 MG TABLET (FP) PO SCH (10:10)
--- NOTE | 2017-03-16 13:27 | DS ---
Physical Exam: SUBJECTIVE: Patient seen and examined. Calm. Cooperating with staff. Eating about 50% of her food tray. OBJECTIVE: Vital Signs Period Temp Pulse Resp BP Sys/Fowler Pulse Ox Last 24 Hr 97.6 F-99.4 F 88-106 18-20 127-151/67-83 96-98 PHYSICAL EXAM GENERAL/NEURO: A&O x 1. Calm. Speech is clearly articulated. No acute distress. HEAD: Normal with no signs of trauma. EYES: Left pupil irregular; right pupil 1mm and deviated to the left EARS, NOSE, THROAT: Thrush on tongue. LUNGS: Breath sounds equal, clear to auscultation bilaterally. No wheezes, and no crackles. No accessory muscle use. HEART: Regular rate and rhythm, normal S1 and S2 without murmur, rub or gallop. ABDOMEN: Soft, nontender, not distended, normoactive bowel sounds, no guarding, no rebound, no masses. UPPER EXTREMITIES: 2+ pulses, warm, well-perfused. No cyanosis. No clubbing. No peripheral edema. LOWER EXTREMITIES: 2+ pulses, warm, well-perfused. No calf tenderness. No peripheral edema. LABS CBCD WBC 6.4 K/mm3 (4.0-10.0) 03/15/17 01:46 RBC 3.24 M/mm3 (3.60-5.2) L 03/15/17 01:46 Hgb 10.7 GM/dL (10.7-15.3) D 03/15/17 01:46 Hct 31.8 % (32.4-45.2) L 03/15/17 01:46 MCV 98.1 fl (80-96) H 03/15/17 01:46 MCHC 33.6 g/dl (32.0-36.0) 03/15/17 01:46 RDW 15.1 % (11.6-15.6) 03/15/17 01:46 Plt Count 182 K/MM3 (134-434) 03/15/17 01:46 MPV 7.2 fl (7.5-11.1) L 03/15/17 01:46 CMP Sodium 144 mmol/L (136-145) 03/15/17 01:46 Potassium 4.1 mmol/L (3.5-5.1) 03/15/17 01:46 Chloride 111 mmol/L (98-107) H 03/15/17 01:46 Carbon Dioxide 23 mmol/L (21-32) 03/15/17 01:46 Anion Gap 10 (8-16) 03/15/17 01:46 BUN 21 mg/dL (7-18) H D 03/15/17 01:46 Creatinine 0.8 mg/dL (0.55-1.02) D 03/15/17 01:46 Creat Clearance w eGFR > 60 (>60) 03/15/17 01:46 Calcium 8.1 mg/dL (8.5-10.1) L 03/15/17 01:46 Total Bilirubin 0.4 mg/dL (0.2-1.0) 03/15/17 01:46 AST 30 U/L (15-37) D 03/15/17 01:46 ALT 32 U/L (12-78) 03/15/17 01:46 Alkaline Phosphatase 94 U/L (45-117) 03/15/17 01:46 Total Protein 6.0 g/dl (6.4-8.2) L 03/15/17 01:46 Albumin 2.9 g/dl (3.4-5.0) L 03/15/17 01:46 Laboratory Results - last 24 hr 03/16/17 07:45 TSH < 0.01 L Free T4 5.92 H D HOSPITAL COURSE: Date of Admission:03/15/17 Date of Discharge: 03/16/17 86 year-old female with a PMH significant for HTN, SSS s/p PPM, afib on Eliquis (recently diagnosed), h/o TIA, dementia with behavior disturbance, thyroid disease, RA, aplastic anemia, and GERD. Dementia with behavior disturbance --this patient's behavior on this admission is consistent with her baseline; she has periods of calm interspersed with periods of agitation --seen and evaluated by psych who recommended continuation of her existing psychotropic medication regimen: citalopram, seroquel, memantine, donepezil Hypertension --BP acceptable for patient's age --continue metoprolol, amlodipine SSS s/p PPM --PPM interrogated earlier this month Atrial fibrillation --rate controlled in 80's, continue metoprolol --continue Eliquis Thyroid disease, goiter --03/06/17 thyroid: large complex left lobe mass stable since 12/2015 --TSH undetectable on 03/08 --f/u TSH, free T3, free T4 --continue methimazole --outpatient followup Thrush --Nystatin swish and swallow; swab inside of mouth if patient cannot follow direction Pyuria --3 WBCs, +nitrites, culture >100k LRGNB --start macrobid x 5 days F/E/N Fluids: PO intake adequate Electrolytes: replete as indicated Nutrition: dysphagia puree, nectar thick, Ensure pudding BID, Magic cup daily , Prosource BID, MVI DVT prophylaxis: on Eliquis Minutes to complete discharge: 35 Discharge Summary Reason For Visit: UTI,CONFUSION Current Active Problems Confusion (Acute) UTI (urinary tract infection) (Acute) Condition: Improved - Instructions Diet, Activity, Other Instructions: The patient is being discharged to your facility today. Medication changes: 1. She should be given macrobid 100mg PO q12h x 7 days for a urinary tract infection. 2. She should be treated with Nystatin PO for thrush; if she cannot swish, staff should swab the inside of her mouth TID x 5 days. Referrals: Arnol Jordan MD [Primary Care Provider] - Disposition: [facility] - Home Medications Comprehensive Discharge Medication List: Ambulatory Orders Amlodipine Besylate [Norvasc -] 5 mg PO DAILY 03/04/17 Aspirin [ASA -] 81 mg PO ASDIR 03/04/17 Citalopram Hydrobromide [Citalopram HBr] 20 mg PO DAILY 03/04/17 Donepezil HCl [Aricept] 10 mg PO DAILY 03/04/17 Famotidine [Pepcid] 20 mg PO DAILY 03/04/17 Ferrous Sulfate [Feosol] 325 mg PO DAILY 03/04/17 Memantine HCl [Namenda -] 10 mg PO BID 03/04/17 Methimazole [Tapazole] 5 mg PO DAILY 03/04/17 Multivitamins [Multivit ([facility] Formul[facility])] 1 tab PO DAILY 03/04/17 Quetiapine Fumarate [Seroquel -] 50 mg PO TID 03/04/17 Turmeric Root Extract [Turmeric] 500 mg PO BID 03/04/17 Amino Acids/Protein Hydrolys [Prosource No Carb Liquid Pkt] 30 ml PO BID@0800, 1730 packet 03/10/17 Apixaban [Eliquis -] 2.5 mg PO BID tablet 03/10/17 Atorvastatin Ca [Lipitor] 80 mg PO HS tablet 03/10/17 Metoprolol Tartrate [Lopressor -] 25 mg PO TID tablet 03/10/17 Tobramycin Sulf/Dexamethasone [Tobradex Ophthalmic Suspension -] 1 drop OD TID ml 03/10/17 Nystatin Oral Suspension - [Nystatin Oral Susp 522910 Units/5 ML -] 500,000 units PO TID #1 bottle 03/16/17 This patient is new to me today: No Emergency Visit: Yes ED Registration Date: 03/15/17 Care time: The patient presented to the Emergency Department on the above date and was hospitalized for further evaluation of their emergent condition. Critical Care patient: No - Discharge Referral Referred to [facility] Med P.C.: No
[2017-03-16] MEDS: AMINO ACIDS/PROTEIN HYDROLYS 30 ML LIQUID.PKT PO SCH (13:52)
[2017-03-16] MEDS: ASPIRIN 81 MG CHEWABLE TABLETS PO SCH (13:52)
[2017-03-16] MEDS ORDERED: NITROFURANTOIN MACROCRYSTAL 50 MG CAPSULE (FP) PO ONE (14:00)
[2017-03-16 14:31] VITALS: BP 139/66; PULSE 106; TEMP 98.7
== END 2017-03-16 15:53 ==
LOC: JER 00:25 → INTOOBSV 06:55 → JERBED 06:55 → UNDOADMOB 06:55 → JERBED 09:37 → J8W 11:22
PROVIDERS: ADMIT Internal Medicine; ATTEND Nurse Practitioner Acute Care
PROC: 3E03329 Introduction of Other Anti-infective into Peripheral Vein, Percutaneous Approach (ICD-10-PCS; principal; 2017-03-15)
PROC: 3E0337Z Introduction of Electrolytic and Water Balance Substance into Peripheral Vein, Percutaneous Approach (ICD-10-PCS; 2017-03-15)
PROC: 3E033GC Introduction of Other Therapeutic Substance into Peripheral Vein, Percutaneous Approach (ICD-10-PCS; 2017-03-15)
PROC: 3E0337Z Introduction of Electrolytic and Water Balance Substance into Peripheral Vein, Percutaneous Approach (ICD-10-PCS; 2017-03-15)
DX: N39.0 Urinary tract infection, site not specified (principal); R41.0 Disorientation, unspecified; G30.9 Alzheimer's disease, unspecified; F02.80 Dementia in other diseases classified elsewhere, unspecified severity, without behavioral disturbance, psychotic disturbance, mood disturbance, and anxiety; M06.9 Rheumatoid arthritis, unspecified; K21.9 Gastro-esophageal reflux disease without esophagitis; I10 Essential (primary) hypertension; I49.5 Sick sinus syndrome; Z86.73 Personal history of transient ischemic attack (TIA), and cerebral infarction without residual deficits; Z95.0 Presence of cardiac pacemaker; D61.9 Aplastic anemia, unspecified; Z85.3 Personal history of malignant neoplasm of breast; Z85.828 Personal history of other malignant neoplasm of skin; Z88.0 Allergy status to penicillin; Z88.2 Allergy status to sulfonamides; Z91.012 Allergy to eggs; Z79.82 Long term (current) use of aspirin; Z79.01 Long term (current) use of anticoagulants; I48.91 Unspecified atrial fibrillation; E04.9 Nontoxic goiter, unspecified; B37.0 Candidal stomatitis
CPT/HCPCS: 36415; 70450-TC; 71010-TC; 80053; 81003; 81015; 82550; 82553; 83735; 84100; 84439; 84443; 84481; 84484; 85025; 85610; 85730; 87086; 87186; 93005; 93010; 99285-25; G0378